=== PATIENT | male | born 1945 | race Hispanic/Latino ===

== ENCOUNTER 2017-01-01 08:10 | Inpatient (IN) | payer MEDICARE, BC ==
[2016-07-28 02:13] VITALS: PULSE 117
[2016-12-05 13:52] VITALS: BMI 27.3
[2017-01-01 08:43] LABS: ADD MANUAL DIFF? NO
[2017-01-01 08:45] LABS: BASO # 0.05 K/mm3 (0.0-2.0); BASO % 0.6 % (0.0-3.0); EOS # 0.1 (0.0-0.7); EOS % 1.5 % (1.5-5.0); GRAN # 5.97 (1.4-6.5); GRAN % 77.1 % (50.0-68.0); HEMATOCRIT 42.7 % (42.0-52.0); LYMPH % 13.4 % (22.0-35.0); MEAN CORPUSCULAR HGB CONC 34.4 g/dl (31.0-37.0); MEAN PLATELET VOLUME 10.2 fl (7.0-11.0); MONO # 0.6 (0.1-0.6); MONO % 7.4 % (1.0-6.0); PLATELET COUNT 238 10^3/uL (120.0-450.0); RED CELL DISTRIBUTION WIDTH 13.6 % (11.5-14.5); WHITE BLOOD COUNT 7.8 10^3/ul (4.5-11.0)
[2017-01-01 09:07] LABS: ALB/GLOB RATIO 1.2 (1.1-1.8); ALKALINE PHOSPHATASE 55 U/L (38-133); ALT/SGPT 35 U/L (7-56); AST/SGOT 46 U/L (15-59); BILIRUBIN,TOTAL 1.3 mg/dL (0.2-1.3); BLOOD UREA NITROGEN 14 mg/dL (7-21); CALCIUM 9.5 mg/dL (8.4-10.5); CARBON DIOXIDE 21 mmol/L (21-33); CHLORIDE 99 mmol/L (95-110); GFR AFRICAN-AMERICAN > 60; GLUCOSE,RANDOM 70 mg/dL (70-110); POTASSIUM 4.6 mmol/L (3.6-5.0); SODIUM 135 mmol/L (132-148); TOTAL PROTEIN 8.4 g/dL (5.8-8.3)
[2017-01-01] MEDS ORDERED: Rocuronium 10 mg/ml (5 ml) ONE ×2 (10:24→12:22)
[2017-01-01] MEDS ORDERED: Propofol 10 mg/ml Inj (20 ML) ONE (10:24)
[2017-01-01] MEDS ORDERED: Succinylcholine 200 mg/10 ml Inj IV ONE (10:24)
[2017-01-01] MEDS ORDERED: metroNIDAZOLE IV 500 mg/100 ml 100 ML ONE (10:43)
[2017-01-01] MEDS ORDERED: ePHEDrine 50 mg/ml Inj ONE (10:56)
[2017-01-01] MEDS ORDERED: Neostigmine Methylsulfate 3mg/3ml Syringe IV ONE (12:22)
[2017-01-01] MEDS ORDERED: Bupivacaine 0.25% Inj(30mL) ONE (13:49)
[2017-01-01] MEDS ORDERED: HYDROmorphone 0.5 mg/0.5 ml ISec IVP PRN (15:09)
[2017-01-01] MEDS ORDERED: Lactated Ringer's 1,000 ML IV SCH (15:15)
[2017-01-01] MEDS ORDERED: HYDROmorphone 0.5 mg/0.5 ml ISec ONE (15:27)
[2017-01-01] MEDS ORDERED: cefOXitin Sodium 1 GM in Sodium Chloride 0.9% 100 ML IV SCH ×2 (15:45→18:40)
[2017-01-01] MEDS ORDERED: metroNIDAZOLE IV 250mg/50 ml 50 ML IVPB SCH ×3 (15:45→18:50)
[2017-01-01] MEDS: White Petrolatum Ophth Oint (Puralube) OS SCH ×2 (15:49→17:46)
--- NOTE | 2017-01-01 15:51 | PCM.SURG1 ---
Surgeon's Initial Post Op Note - Surgeon's Notes Surgeon: Any Collarette Separator: Baltazar Martines Pre-Operative Diagnosis: Diverticulosis, colostomy status, incision hernia Operative Findings: incisional hernia, diverticulosis, stoma Post-Operative Diagnosis: Diverticulosis, colostomy status, incision hernia Operation Performed: colostomy reversal, incisional hernia repair Specimen/Specimens Removed: colon, fascia Estimated Blood Loss: EBL {In ML}: 40 Drains Used: Ld (2) Date of Surgery/Procedure: 01/01/17 Time of Surgery/Procedure: 10:45
[2017-01-01] MEDS: Lactated Ringer's 1,000 ML IV SCH (17:39)
[2017-01-01] MEDS ORDERED: Non Formulary Medication (Valsartan [Diovan] 160 MG) PO SCH (18:00)
[2017-01-01] MEDS: HYDROmorphone 1 mg/ml ISec IVP PRN ×2 (18:11→21:18)
[2017-01-01] MEDS: cefOXitin Sodium 1 GM in Sodium Chloride 0.9% 100 ML IV SCH (18:45)
[2017-01-01] MEDS: metroNIDAZOLE IV 500 mg/100 ml 100 ML IV SCH (19:26)
[2017-01-01] MEDS ORDERED: Erythromycin 0.5% Ophth Oint 1 APPLIC/3.5 G OU SCH (22:00)
[2017-01-02] MEDS: HYDROmorphone 1 mg/ml ISec IVP PRN ×7 (00:24→23:12)
[2017-01-02] MEDS: metroNIDAZOLE IV 500 mg/100 ml 100 ML IV SCH (02:38)
[2017-01-02] MEDS: cefOXitin Sodium 1 GM in Sodium Chloride 0.9% 100 ML IV SCH (03:32)
[2017-01-02 07:40] LABS: ADD MANUAL DIFF? NO
[2017-01-02 07:46] LABS: BASO # 0.01 K/mm3 (0.0-2.0); BASO % 0.1 % (0.0-3.0); EOS % 0.1 % (1.5-5.0); GRAN # 7.46 (1.4-6.5); GRAN % 76.1 % (50.0-68.0); HEMATOCRIT 37.8 % (42.0-52.0); LYMPH # 0.8 (1.2-3.4); LYMPH % 7.6 % (22.0-35.0); MEAN CORPUSCULAR HEMOGLOBIN 32.3 pg (25.0-35.0); MEAN CORPUSCULAR HGB CONC 34.4 g/dl (31.0-37.0); MEAN PLATELET VOLUME 10.6 fl (7.0-11.0); MONO # 1.6 (0.1-0.6); MONO % 16.1 % (1.0-6.0); PLATELET COUNT 231 10^3/uL (120.0-450.0); WHITE BLOOD COUNT 9.8 10^3/ul (4.5-11.0)
[2017-01-02 07:57] LABS: BLOOD UREA NITROGEN 14 mg/dL (7-21); CALCIUM 8.5 mg/dL (8.4-10.5); CARBON DIOXIDE 26 mmol/L (21-33); CHLORIDE 100 mmol/L (95-110); GFR AFRICAN-AMERICAN > 60; GLUCOSE,RANDOM 118 mg/dL (70-110); POTASSIUM 4.3 mmol/L (3.6-5.0); SODIUM 136 mmol/L (132-148)
--- NOTE | 2017-01-02 07:59 | RAD ---
HISTORY: s/p NG tube COMPARISON: 08/03/2016 FINDINGS: The nasogastric tube terminates in the stomach. LUNGS: There is mild pulmonary venous congestion. There is bibasilar subsegmental atelectasis. There is no focal consolidation PLEURA: No significant pleural effusion identified, no pneumothorax apparent. CARDIOVASCULAR: The heart is normal in size. Status post CABG with OSSEOUS STRUCTURES: No significant abnormalities. VISUALIZED UPPER ABDOMEN: Normal. OTHER FINDINGS: None. IMPRESSION: The nasogastric tube terminates in the stomach. Mild pulmonary venous congestion. Bibasilar atelectasis.
[2017-01-02] MEDS: Lactated Ringer's 1,000 ML IV SCH ×3 (08:29→13:03)
[2017-01-02] MEDS: Metoprolol Succinate 100 mg XL Tab PO SCH (09:58)
[2017-01-02] MEDS: PITAVASTATIN CALCIUM 2 MG PO SCH (09:59)
[2017-01-02] MEDS: Tobramycin/Dexamethasone (Tobradex) Opth Sol (2.5 ml) OS SCH ×5 (10:14→23:14)
[2017-01-02] MEDS: White Petrolatum Ophth Oint (Puralube) OS SCH (11:53)
--- NOTE | 2017-01-02 13:02 | CP.PCM.PN ---
<Thomas Ledesma - Last Filed: 01/02/17 12:57> Subjective - Date & Time of Evaluation Date of Evaluation: 01/02/17 Time of Evaluation: 07:00 - Subjective Subjective: SURGERY NOTE FOR DR. AGARWAL 71M seen and examined at bedside. HILDA. Patient admits to incision pain, denies nausea, vomiting, fevers, chills. States he is unsure if he is passing gas. Objective - Vital Signs/Intake and Output Vital Signs (last 24 hours): Temp Pulse Resp BP Pulse Ox 98.3 F 56 L 19 139/78 97 01/02/17 06:00 01/02/17 09:58 01/02/17 06:00 01/02/17 06:00 01/02/17 06:00 Intake and Output: 01/02/17 01/02/17 06:59 18:59 Intake Total 2400 Output Total 2300 Balance 100 - Medications Medications: Current Medications Acetaminophen (Tylenol 325mg Tab) 650 mg PO Q6H PRN PRN Reason: Pain, moderate (4-7) Amiodarone HCl (Cordarone) 100 mg PO DAILY [facility] Last Admin: 01/02/17 09:57 Dose: Not Given Heparin Sodium (Porcine) (Heparin) 5,000 units SC 0800 [facility] Last Admin: 01/02/17 08:21 Dose: 5,000 units Hydromorphone HCl (Dilaudid) 1 mg IVP Q3 PRN PRN Reason: Pain, moderate (4-7) Last Admin: 01/02/17 10:51 Dose: 1 mg Lactated Ringer's (Lactated Ringer's) 1,000 mls @ 75 mls/hr IV .[id number] [facility] Losartan Potassium (Cozaar) 100 mg PO QPM [facility] Last Admin: 01/01/17 17:34 Dose: Not Given Metoprolol Succinate (Toprol Xl) 100 mg PO QAM [facility] Last Admin: 01/02/17 09:58 Dose: Not Given Non-Formulary Medication (Pitavastatin Calcium [Livalo]) 2 mg PO QAM [facility] Last Admin: 01/02/17 09:59 Dose: Not Given Ondansetron HCl (Zofran Inj) 4 mg IVP Q4H PRN PRN Reason: Nausea/Vomiting Pantoprazole Sodium (Protonix Inj) 40 mg IVP DAILY [facility] Last Admin: 01/02/17 09:58 Dose: 40 mg Tobramycin/Dexamethasone (Tobradex Opht Susp) 0 ml OS Q4 [facility] Last Admin: 01/02/17 12:40 Dose: 1 drop - Labs Labs: 01/02/17 07:00 01/02/17 07:00 - Constitutional Appears: Non-toxic, No Acute Distress - Head Exam Head Exam: ATRAUMATIC - Eye Exam Eye Exam: EOMI, PERRL - Respiratory Exam Respiratory Exam: Clear to Ausculation Bilateral, NORMAL BREATHING PATTERN - Cardiovascular Exam Cardiovascular Exam: REGULAR RHYTHM, +S1, +S2 - GI/Abdominal Exam GI & Abdominal Exam: Soft, Tenderness. absent: Distended, Firm, Guarding, Rigid , Rebound Additional comments: dressing is CDI, drains in place, output is serosanguious, NG tube output minimal overnight. - Neurological Exam Neurological Exam: Alert, Awake - Skin Skin Exam: Dry, Normal Color, Urticaria, Warm Assessment and Plan - Assessment and Plan (Free Text) Assessment: 71M s/p colostomy reversal/Incisional hernia repair POD#1 Plan: - await bowel function - monitor urine output - advance to Liquid diet - DC NGT tonight, continue IVF - OnQ ball in place Discussed with Dr. Any Ledesma, PGY1 <Nasir Agarwal - Last Filed: 03/20/17 08:03> Objective - Vital Signs/Intake and Output Vital Signs (last 24 hours): Temp Pulse Resp BP Pulse Ox 98.4 F 64 20 146/82 96 01/05/17 08:43 01/05/17 09:28 01/05/17 08:43 01/05/17 09:28 01/05/17 08:43 - Labs Labs: 01/04/17 06:30 01/04/17 06:30 Assessment and Plan - Assessment and Plan (Free Text) Plan: Patient was seen and examined by me. I agree with assessment and plan as per resident's note.
--- NOTE | 2017-01-02 21:29 | CONS ---
The patient is a 71-year-old white male who yesterday, after surgery, had a corneal abrasion in his l eft eye. I saw him on consultation this morning. I had, by phone, put him on erythromycin ophthalmi c ointment, but this morning the eye looks better, so I am going to switch him to TobraDex 1 drop in the left eye 4 times a day. The rest of his eye exam is normal. I will see him in followup in of yobany. Alejandro Alexandre MD cc: [phone] TT: 01/02/2017 21:28:57 corazon
[2017-01-03] MEDS ORDERED: HYDROmorphone 0.5 mg/0.5 ml ISec IVP PRN (01:46)
[2017-01-03] MEDS: HYDROmorphone 1 mg/ml ISec IVP PRN ×4 (02:04→21:01)
[2017-01-03] MEDS: Lactated Ringer's 1,000 ML IV SCH (02:25)
--- NOTE | 2017-01-03 03:22 | CON ---
DATE: 01/02/2017 HISTORY OF PRESENT ILLNESS: This is a 71-year-old man with a history of hypertension, atrial fibrill ation, coronary artery disease and low ejection fraction, who presented to the Emergency Room in 07/09 016 acutely ill with free air under the diaphragm, perforated viscus from a ruptured diverticulum. Thuy rodriguez went to the OR for colonoscopy, was treated in intensive care, was critically ill for some period o f time, sedated and intubated, but amazingly improved clinically. He continued to progress through t he course of the hospital stay, was discharged to home with a colostomy and now some 5 months later r eturns to [facility] for elective reanastomosis of colostomy and repair of a ventral hernia. The patient was seen this Sunday morning in room 369, bed 1. During my visit, I was joined by Dr. Juan Carlos coleman, the attending surgeon and his financial institution president. The patient was awake, alert and clear 1 day postoperatively, moving all extremities. He reports feeling bowel sounds and borborygmi but no flatus or stool passed as of yet. PHYSICAL EXAMINATION: HEAD AND NECK: Unremarkable. Conjunctivae are pink. Mucous membranes are moist. NECK: Supple, without masses. Thyroid not palpable. LUNGS: Clear. Good air exchange, both right and left. HEART: Not tachycardic. ABDOMEN: Quiet with dressings in place. EXTREMITIES: Showed ESTRELLITA stockings in place. No calf tenderness. No swelling and negative Homans' s ign. IMPRESSION: 1. Postoperative day #1 of colostomy reversal and hernia repair. 2. Hypertension. 3. History of atrial fibrillation. 4. Low ejection fraction. 5. History of coronary artery disease. PLAN: Postoperatively, doing well. We will follow vital signs, blood pressure labs and prior medica tions. Yonatan Rehman MD cc: [phone] TT: 01/03/2017 03:21:38 Confirmation # [id number] Dictation # [id number]
[2017-01-03] MEDS: Tobramycin/Dexamethasone (Tobradex) Opth Sol (2.5 ml) OS SCH ×5 (04:47→21:01)
[2017-01-03] MEDS: Metoprolol Succinate 100 mg XL Tab PO SCH (09:38)
[2017-01-03] MEDS: PITAVASTATIN CALCIUM 2 MG PO SCH (09:40)
--- NOTE | 2017-01-03 11:47 | CON ---
DATE: 01/03/2017 REQUESTING PHYSICIAN: Dr. Agarwal. REASON FOR CONSULTATION: Cardiology followup. HISTORY OF PRESENT ILLNESS: This is a 71-year-old man known to us from prior admission who was admit [facility] for reversal of colostomy and ventral hernia repair. He was admitted last July with severe ab dominal pain and found to have a perforated viscus secondary to ruptured diverticulum. He underwent emergency partial colectomy at that time. He has known coronary artery disease, chronic atrial fibri llation and a history of hypertension and LV dysfunction. He had previously been followed by Dr. Lacy august; however, is planning on switching to a local customs officer for ongoing followup. He is seen sit ting in a chair on 3R. He is comfortable at the present time except for some incisional pain. PAST MEDICAL HISTORY: Notable for the problems mentioned above. He has known coronary disease and u nderwent prior bypass surgery and does have chronic atrial fibrillation and hypertension. He had pre viously been on Xarelto, but that was discontinued some time ago. MEDICATIONS: He currently remains on amiodarone 100 mg daily, Cozaar 100 mg daily, Dilaudid, subcuta neous heparin, Livalo 2 mg daily, Protonix, Toprol-XL 100 mg daily. ALLERGIES: None. SOCIAL HISTORY: He is a former smoker. He denies alcohol use. FAMILY HISTORY: Both parents are from age-related illness. REVIEW OF SYSTEMS: Ten point review of systems is otherwise unremarkable. PHYSICAL EXAMINATION: GENERAL: He is a middle-aged man who appears comfortable at the present time. VITAL SIGNS: His blood pressure is 126/56 with a pulse of 80, irregularly irregular, respirations ar e 14. His current temperature is 99.9. HEENT: Normocephalic, atraumatic. Pupils equally reactive to light and accommodation. NECK: Supple. No JVD noted. CHEST: Good bilateral breath sounds heard. HEART: PMI displaced laterally with a systolic murmur in the left sternal border. Rhythm is irregul james irregular. ABDOMEN: Soft, faint bowel sounds heard. The dressing is clean and dry. EXTREMITIES: No clubbing, cyanosis or edema. SKIN: Warm and dry. PSYCHIATRIC: Normal mood and affect. NEUROLOGIC: Alert and oriented x 3. No gross motor or sensory deficits appreciable. DIAGNOSTIC DATA: His white count is 9.8, hemoglobin and hematocrit 13.0 and 37.8 with a platelet cou nt of 231,000. Potassium 4.3, BUN and creatinine are 14 and 1.0, glucose 118. Electrocardiogram is pending. Chest x-ray preoperatively revealed bibasilar atelectasis, poststernotomy changes. IMPRESSION: 1. Status post colostomy reversal and hernia repair. Appears clinically stable at the present time. 2. Known coronary artery disease, status post remote bypass surgery, also appears stable. 3. Atrial fibrillation appears persistent at the present time. 4. Left ventricular systolic dysfunction and appears clinically compensated at present time. RECOMMENDATIONS: 1. His current medications can be continued for now. A question exists as to whether chronic amioda cary therapy is necessary or appropriate. 2. He has been reluctant to resume anticoagulant therapy as he feels the risk of bleeding is excessi ve. The risks and benefits of bleeding versus stroke will need to be discussed in detail with him fu rther. 3. Avoidance of excessive volume infusion is advised. 4. All the records will be obtained. 5. Ongoing followup will be provided. Thank you for this consultation. I will be happy to follow along as needed. Davion Gallo MD cc: [id number] TT: 01/03/2017 11:47:10 Confirmation # [id number] Dictation # [id number]
--- NOTE | 2017-01-03 12:39 | CP.PCM.PN ---
<Thomas Ledesma - Last Filed: 01/03/17 12:41> Subjective - Date & Time of Evaluation Date of Evaluation: 01/03/17 Time of Evaluation: 09:30 - Subjective Subjective: SURGERY PROGRESS NOTE FOR DR. AGARWAL 71M seen and examined at bedside. Patient is comfortable and out of bed. States he has been voiding, pain is well controlled with medication, denies nausea, vomiting, admits to hearing bowel sounds, but unsure if he is passing gas. Denies bowel movement. Objective - Vital Signs/Intake and Output Vital Signs (last 24 hours): Temp Pulse Resp BP Pulse Ox 99.9 F H 79 17 126/56 L 99 01/03/17 06:00 01/03/17 09:39 01/03/17 06:00 01/03/17 09:39 01/03/17 06:00 Intake and Output: 01/03/17 01/03/17 06:59 18:59 Intake Total 825 Output Total 500 Balance 325 - Medications Medications: Current Medications Acetaminophen (Tylenol 325mg Tab) 650 mg PO Q6H PRN PRN Reason: Pain, moderate (4-7) Amiodarone HCl (Cordarone) 100 mg PO DAILY [facility] Last Admin: 01/03/17 09:39 Dose: 100 mg Heparin Sodium (Porcine) (Heparin) 5,000 units SC 0800 [facility] Last Admin: 01/03/17 08:02 Dose: 5,000 units Hydromorphone HCl (Dilaudid) 1 mg IVP Q3 PRN PRN Reason: Pain, moderate (4-7) Last Admin: 01/03/17 11:15 Dose: 1 mg Hydromorphone HCl (Dilaudid) 0.5 mg IVP Q2 PRN PRN Reason: Pain, moderate (4-7) Lactated Ringer's (Lactated Ringer's) 1,000 mls @ 75 mls/hr IV .[id number] [facility] Last Admin: 01/03/17 02:25 Dose: 75 mls/hr Losartan Potassium (Cozaar) 100 mg PO QPM [facility] Last Admin: 01/02/17 17:03 Dose: Not Given Metoprolol Succinate (Toprol Xl) 100 mg PO QAM [facility] Last Admin: 01/03/17 09:38 Dose: 100 mg Non-Formulary Medication (Pitavastatin Calcium [Livalo]) 2 mg PO QAM [facility] Last Admin: 01/03/17 09:40 Dose: Not Given Ondansetron HCl (Zofran Inj) 4 mg IVP Q4H PRN PRN Reason: Nausea/Vomiting Pantoprazole Sodium (Protonix Inj) 40 mg IVP DAILY [facility] Last Admin: 01/03/17 09:39 Dose: 40 mg Tobramycin/Dexamethasone (Tobradex Opht Susp) 0 ml OS Q4 [facility] Last Admin: 01/03/17 11:16 Dose: 1 drop - Labs Labs: 01/02/17 07:00 01/02/17 07:00 - Constitutional Appears: Non-toxic, No Acute Distress - Head Exam Head Exam: ATRAUMATIC - Eye Exam Eye Exam: EOMI, PERRL - ENT Exam ENT Exam: Mucous Membranes Moist - Respiratory Exam Respiratory Exam: Clear to Ausculation Bilateral, NORMAL BREATHING PATTERN - Cardiovascular Exam Cardiovascular Exam: REGULAR RHYTHM, +S1, +S2 - GI/Abdominal Exam GI & Abdominal Exam: Soft, Tenderness (appropriate tenderness). absent: Distended, Firm, Guarding, Rigid, Rebound Additional comments: both ancelmo drain in place, medial drain on wall suction, both serosanguinous fluid. Dressings clean dry intact Assessment and Plan - Assessment and Plan (Free Text) Assessment: 71M s/p colostomy reversal/Incisional hernia repair POD#2 Plan: - await bowel function - Monitor diet - Continue IVF - OnQ ball in place Discussed with Dr. Any Ledesma, PGY1 <Nasir Agarwal - Last Filed: 03/20/17 08:04> Objective - Vital Signs/Intake and Output Vital Signs (last 24 hours): Temp Pulse Resp BP Pulse Ox 98.4 F 64 20 146/82 96 01/05/17 08:43 01/05/17 09:28 01/05/17 08:43 01/05/17 09:28 01/05/17 08:43 - Labs Labs: 01/04/17 06:30 01/04/17 06:30 Assessment and Plan - Assessment and Plan (Free Text) Plan: Patient was seen and examined by me. I agree with assessment and plan as per resident's note.
[2017-01-03 17:20] VITALS: RESP 20
--- NOTE | 2017-01-03 17:25 | CARD ---
APPROVED REPORT EKG Measurement Heart [id number] <Conclusion> Atrial fibrillation with rapid ventricular response Inferior infarct, age undetermined Anterior infarct, age undetermined Abnormal ECG
[2017-01-04] MEDS: Tobramycin/Dexamethasone (Tobradex) Opth Sol (2.5 ml) OS SCH ×6 (01:17→21:28)
[2017-01-04] MEDS: HYDROmorphone 1 mg/ml ISec IVP PRN ×2 (02:04→06:33)
[2017-01-04 07:09] LABS: HEMATOCRIT 33.2 % (42.0-52.0); MEAN CELL VOLUME 94.1 fL (80.0-105.0); MEAN CORPUSCULAR HEMOGLOBIN 31.7 pg (25.0-35.0); MEAN CORPUSCULAR HGB CONC 33.7 g/dl (31.0-37.0); MEAN PLATELET VOLUME 10.3 fl (7.0-11.0); RED CELL DISTRIBUTION WIDTH 13.7 % (11.5-14.5); WHITE BLOOD COUNT 10.3 10^3/ul (4.5-11.0)
[2017-01-04 07:27] LABS: ALKALINE PHOSPHATASE 38 U/L (38-133); ALT/SGPT 24 U/L (7-56); AST/SGOT 38 U/L (15-59); BILIRUBIN,TOTAL 1.2 mg/dL (0.2-1.3); BLOOD UREA NITROGEN 10 mg/dL (7-21); CARBON DIOXIDE 26 mmol/L (21-33); CHLORIDE 98 mmol/L (98-107); GFR AFRICAN-AMERICAN > 60; GLUCOSE,RANDOM 91 mg/dL (70-110); POTASSIUM 3.9 mmol/L (3.6-5.0); SODIUM 132 mmol/L (132-148)
--- NOTE | 2017-01-04 08:17 | CP.PCM.PN ---
Subjective - Date & Time of Evaluation Date of Evaluation: 01/04/17 Time of Evaluation: 08:00 - Subjective Subjective: Stable on 3R. No CP or SOB. Still some abd pain. Taking PO. + flatus V/S Noted. PE: Lungs: clear Cor.: irreg. S1S2 Abd.: soft Ext.: no edema Neuro.: alert I/O= 540/400 Labs 01/03 noted: H/H Objective - Vital Signs/Intake and Output Vital Signs (last 24 hours): Temp Pulse Resp BP Pulse Ox 98.3 F 52 L 20 137/69 96 01/03/17 16:00 01/03/17 16:00 01/03/17 16:00 01/03/17 16:00 01/03/17 16:00 Intake and Output: 01/04/17 01/04/17 06:59 18:59 Intake Total 540 Output Total 400 Balance 140 - Medications Medications: Current Medications Acetaminophen (Tylenol 325mg Tab) 650 mg PO Q6H PRN PRN Reason: Pain, moderate (4-7) Amiodarone HCl (Cordarone) 100 mg PO DAILY [facility] Last Admin: 01/03/17 09:39 Dose: 100 mg Heparin Sodium (Porcine) (Heparin) 5,000 units SC 0800 [facility] Last Admin: 01/03/17 08:02 Dose: 5,000 units Hydromorphone HCl (Dilaudid) 1 mg IVP Q3 PRN PRN Reason: Pain, moderate (4-7) Last Admin: 01/04/17 06:33 Dose: 1 mg Hydromorphone HCl (Dilaudid) 0.5 mg IVP Q2 PRN PRN Reason: Pain, moderate (4-7) Last Admin: 01/03/17 15:59 Dose: 0.5 mg Losartan Potassium (Cozaar) 100 mg PO QPM [facility] Last Admin: 01/03/17 17:28 Dose: 100 mg Metoprolol Succinate (Toprol Xl) 100 mg PO QAM [facility] Last Admin: 01/03/17 09:38 Dose: 100 mg Non-Formulary Medication (Pitavastatin Calcium [Livalo]) 2 mg PO QAM [facility] Last Admin: 01/03/17 09:40 Dose: Not Given Ondansetron HCl (Zofran Inj) 4 mg IVP Q4H PRN PRN Reason: Nausea/Vomiting Pantoprazole Sodium (Protonix Inj) 40 mg IVP DAILY [facility] Last Admin: 01/03/17 09:39 Dose: 40 mg Tobramycin/Dexamethasone (Tobradex Opht Susp) 0 ml OS Q4 [facility] Last Admin: 01/04/17 05:25 Dose: Not Given - Labs Labs: 01/04/17 06:30 01/04/17 06:30 Assessment and Plan - Assessment and Plan (Free Text) Plan: Assessment; S/P reversal of colostomy and vent. hernia repair S/P partial colectomy CAD/CABG/LVD Chronic AF HBP Former Smoker Plan: As per surgery: adv. diet OOB Continue metoprolol and amiod. In future may d/c amiod. Monitor: I/O, labs, katherine., etc.
--- NOTE | 2017-01-04 09:05 | CP.PCM.PN ---
<Thomas Ledesma - Last Filed: 01/04/17 09:14> Subjective - Date & Time of Evaluation Date of Evaluation: 01/04/17 Time of Evaluation: 07:30 - Subjective Subjective: SURGERY NOTE FOR DR. HARO 71M seen and examined at bedside. Patient states his pain is controlled with medications, denies nausea, vomiting, fevers. Admits to passing flatus but no BM yet. Patient has been urinating after bethea pulled. Tolerating liquid diet. Objective - Vital Signs/Intake and Output Vital Signs (last 24 hours): Temp Pulse Resp BP Pulse Ox 98.3 F 52 L 20 137/69 96 01/03/17 16:00 01/03/17 16:00 01/03/17 16:00 01/03/17 16:00 01/03/17 16:00 Intake and Output: 01/04/17 01/04/17 06:59 18:59 Intake Total 540 Output Total 400 Balance 140 - Medications Medications: Current Medications Acetaminophen (Tylenol 325mg Tab) 650 mg PO Q6H PRN PRN Reason: Pain, moderate (4-7) Amiodarone HCl (Cordarone) 100 mg PO DAILY [facility] Last Admin: 01/03/17 09:39 Dose: 100 mg Heparin Sodium (Porcine) (Heparin) 5,000 units SC 0800 [facility] Last Admin: 01/03/17 08:02 Dose: 5,000 units Hydromorphone HCl (Dilaudid) 1 mg IVP Q3 PRN PRN Reason: Pain, moderate (4-7) Last Admin: 01/04/17 06:33 Dose: 1 mg Hydromorphone HCl (Dilaudid) 0.5 mg IVP Q2 PRN PRN Reason: Pain, moderate (4-7) Last Admin: 01/03/17 15:59 Dose: 0.5 mg Losartan Potassium (Cozaar) 100 mg PO QPM [facility] Last Admin: 01/03/17 17:28 Dose: 100 mg Metoprolol Succinate (Toprol Xl) 100 mg PO QAM [facility] Last Admin: 01/03/17 09:38 Dose: 100 mg Non-Formulary Medication (Pitavastatin Calcium [Livalo]) 2 mg PO QAM [facility] Last Admin: 01/03/17 09:40 Dose: Not Given Ondansetron HCl (Zofran Inj) 4 mg IVP Q4H PRN PRN Reason: Nausea/Vomiting Pantoprazole Sodium (Protonix Inj) 40 mg IVP DAILY [facility] Last Admin: 01/03/17 09:39 Dose: 40 mg Tobramycin/Dexamethasone (Tobradex Opht Susp) 0 ml OS Q4 [facility] Last Admin: 01/04/17 05:25 Dose: Not Given - Labs Labs: 01/04/17 06:30 01/04/17 06:30 - Constitutional Appears: Non-toxic, No Acute Distress - Head Exam Head Exam: ATRAUMATIC - Respiratory Exam Respiratory Exam: Clear to Ausculation Bilateral, NORMAL BREATHING PATTERN - Cardiovascular Exam Cardiovascular Exam: REGULAR RHYTHM, +S1, +S2 - GI/Abdominal Exam GI & Abdominal Exam: Soft, Tenderness (appropriate tenderness around incisions) . absent: Distended, Firm, Guarding, Rigid Additional comments: drains in place with serosang output. Drain dressings changed. Incisions/ dressing are clean dry intact - Neurological Exam Neurological Exam: Alert, Awake - Skin Skin Exam: Dry, Intact, Normal Color, Warm Assessment and Plan - Assessment and Plan (Free Text) Assessment: 71M s/p colostomy reversal/Incisional hernia repair POD#3 Plan: - ADAT - monitor drains, dressings - OnQ ball finished - pull OnQ - Monitor for bowel movements - Encourage ambulation/ IS/ Stockings Further recs discuss with Dr. Any Ledesma, PGY1 <Nasir Haro - Last Filed: 03/20/17 08:04> Objective - Vital Signs/Intake and Output Vital Signs (last 24 hours): Temp Pulse Resp BP Pulse Ox 98.4 F 64 20 146/82 96 01/05/17 08:43 01/05/17 09:28 01/05/17 08:43 01/05/17 09:28 01/05/17 08:43 - Labs Labs: 01/04/17 06:30 01/04/17 06:30 Assessment and Plan - Assessment and Plan (Free Text) Plan: Patient was seen and examined by me. I agree with assessment and plan as per resident's note.
[2017-01-04] MEDS: Metoprolol Succinate 100 mg XL Tab PO SCH (11:41)
[2017-01-04] MEDS: PITAVASTATIN CALCIUM 2 MG PO SCH (11:53)
[2017-01-05] MEDS: Tobramycin/Dexamethasone (Tobradex) Opth Sol (2.5 ml) OS SCH ×3 (01:25→08:16)
[2017-01-05] MEDS: Oxycodone/Acetaminophen 5/325 mg Tab PO PRN ×2 (04:26→09:33)
--- NOTE | 2017-01-05 08:02 | CP.PCM.PN ---
Subjective - Date & Time of Evaluation Date of Evaluation: 01/05/17 Time of Evaluation: 08:00 - Subjective Subjective: Stable on 3R. No CP or SOB. Still some abd pain. Taking PO. + BM yesterday V/S Noted. PE: Lungs: clear Cor.: irreg. S1S2 Abd.: soft Ext.: no edema Neuro.: alert I/O= 1500/230 Labs 01/04 noted. Objective - Vital Signs/Intake and Output Vital Signs (last 24 hours): Temp Pulse Resp BP Pulse Ox 98.2 F 72 20 166/95 H 95 01/04/17 16:00 01/04/17 16:00 01/04/17 16:00 01/04/17 16:00 01/04/17 16:00 Intake and Output: 01/05/17 01/05/17 06:59 18:59 Intake Total 660 Output Total 230 Balance 430 - Medications Medications: Current Medications Acetaminophen (Tylenol 325mg Tab) 650 mg PO Q6H PRN PRN Reason: Pain, moderate (4-7) Amiodarone HCl (Cordarone) 100 mg PO DAILY [facility] Last Admin: 01/04/17 11:40 Dose: 100 mg Heparin Sodium (Porcine) (Heparin) 5,000 units SC 0800 [facility] Last Admin: 01/04/17 08:00 Dose: 5,000 units Losartan Potassium (Cozaar) 100 mg PO QPM [facility] Last Admin: 01/04/17 18:21 Dose: 100 mg [facility]oprol[facility] Succinate ([facility]l) [facility] [place] Admin: 01/04/17 11:41 Dose: 100 mg Non-Formulary Medication (Pitavastatin Calcium [Livalo]) 2 mg PO [facility] Last Admin: 01/04/17 11:53 Dose: Not Given Ondansetron HCl (Zofran Inj) 4 mg IVP Q4H PRN PRN Reason: Nausea/Vomiting Oxycodone/Acetaminophen (Percocet 5/325 Mg Tab) 1 tab PO Q6H PRN PRN Reason: Pain, moderate (4-7) Stop: 01/07/17 18:06 Last Admin: 01/05/17 04:26 Dose: 1 tab Pantoprazole Sodium (Protonix Inj) 40 mg IVP DAILY [facility] Last Admin: 01/04/17 11:41 Dose: 40 mg Tobramycin/Dexamethasone (Tobradex Opht Susp) 0 ml OS Q4 [facility] Last Admin: 01/05/17 04:26 Dose: 1 drop - Labs Labs: 01/04/17 06:30 01/04/17 06:30 Assessment and Plan - Assessment and Plan (Free Text) Plan: Assessment; S/P reversal of colostomy and vent. hernia repair S/P partial colectomy CAD/CABG/LVD Chronic AF HBP Former Smoker Plan: As per surgery. OOB Continue metoprolol and amiod. In future may d/c amiod. Home soon. Cardiology F/U in our office ~ 2 weeks.
[2017-01-05 08:44] VITALS: BP 146/82; PULSE 64; TEMP 98.4; O2SAT 96
--- NOTE | 2017-01-05 09:23 | PN ---
DATE: 01/04/2017 Initially, there was rumor the patient might go home today. His implanted analgesic device was remov ed. I am told that his Kayode-Delarosa drains are to be removed tomorrow, and discharge to home will b e more likely tomorrow. In the interim, he is doing well, his vital signs are stable. He is recovering nicely postoperativel y. The Ordonez catheter is out, and he is sleepy this evening, preparing for bed. Will follow in the morning, and medically ready for discharge home. Yonatan Rehman MD cc: [id number] TT: 01/05/2017 09:22:15 Confirmation # [id number] Dictation # [id number]
[2017-01-05] MEDS: Metoprolol Succinate 100 mg XL Tab PO SCH (09:28)
--- NOTE | 2017-01-05 12:48 | CP.PCM.DIS ---
Provider - Provider Date of Admission: 01/01/17 08:10 Attending physician: Nasir Haro MD Primary care physician: Elmer Rehman MD Time Spent in preparation of Discharge (in minutes): 35 Hospital Course - Lab Results Lab Results: Most Recent Lab Values WBC 10.3 10^3/ul (4.5-11.0) 01/04/17 06:30 RBC 3.53 10^6/uL (3.5-6.1) 01/04/17 06:30 Hgb 11.2 gm/dL (14.0-18.0) L 01/04/17 06:30 Hct 33.2 % (42.0-52.0) L 01/04/17 06:30 MCV 94.1 fL (80.0-105.0) 01/04/17 06:30 MCH 31.7 pg (25.0-35.0) 01/04/17 06:30 MCHC 33.7 g/dl (31.0-37.0) 01/04/17 06:30 RDW 13.7 % (11.5-14.5) 01/04/17 06:30 Plt Count 228 10^3/uL (120.0-450.0) 01/04/17 06:30 MPV 10.3 fl (7.0-11.0) 01/04/17 06:30 Gran % 76.1 % (50.0-68.0) H 01/02/17 07:00 Lymph % (Auto) 7.6 % (22.0-35.0) L 01/02/17 07:00 [place] % (Auto) 16.1 % (1.0-6.0) H 01/02/17 07:00 Eos % (Auto) 0.1 % (1.5-5.0) L 01/02/17 07:00 Baso % (Auto) 0.1 % (0.0-3.0) 01/02/17 07:00 Gran # 7.46 (1.4-6.5) H 01/02/17 07:00 Lymph # 0.8 (1.2-3.4) L 01/02/17 07:00 [place] # 1.6 (0.1-0.6) H 01/02/17 07:00 Eos # 0.0 (0.0-0.7) 01/02/17 07:00 Baso # 0.01 K/mm3 (0.0-2.0) 01/02/17 07:00 Sodium 132 mmol/L (132-148) 01/04/17 06:30 Potassium 3.9 mmol/L (3.6-5.0) 01/04/17 06:30 Chloride 98 mmol/L (98-107) 01/04/17 06:30 Carbon Dioxide 26 mmol/L (21-33) 01/04/17 06:30 Anion Gap 12 (10-20) 01/04/17 06:30 BUN 10 mg/dL (7-21) 01/04/17 06:30 Creatinine 0.8 mg/dL (0.5-1.4) 01/04/17 06:30 Est GFR ( Amer) > 60 01/04/17 06:30 Est GFR (Non-Af Amer) > 60 01/04/17 06:30 POC Glucose (mg/dL) 94 mg/dL (65-110) 01/03/17 21:04 Random Glucose 91 mg/dL (70-110) 01/04/17 06:30 Calcium 9.0 mg/dL (8.4-10.5) 01/04/17 06:30 Total Bilirubin 1.2 mg/dL (0.2-1.3) 01/04/17 06:30 AST 38 U/L (15-59) 01/04/17 06:30 ALT 24 U/L (7-56) 01/04/17 06:30 Alkaline Phosphatase 38 U/L (38-133) 01/04/17 06:30 Total Protein 7.0 g/dL (5.8-8.3) 01/04/17 06:30 Albumin 3.4 g/dL (3.0-4.8) 01/04/17 06:30 Globulin 3.5 gm/dL 01/04/17 06:30 Albumin/Globulin Ratio 1.0 (1.1-1.8) L 01/04/17 06:30 Blood Type O POSITIVE 01/01/17 08:30 Antibody Screen Negative 01/01/17 08:30 BBK History Checked Patient has bt 01/01/17 08:30 - Hospital Course Hospital Course: 71M admitted to the hospital after having a colostomy reversal and incisional hernia repair. Patient initially had a flores's procedure for diverticulitis 5 months ago. The surgery was uneventful without complications. Post op care was provided including, pain management, wound care, management of On-Q ball. Ld drain management. Patient's post op course was uneventful and patient did well. Patient experienced bowel movements and is now ready for Discharge. Discharge Exam - Head Exam Head Exam: ATRAUMATIC, NORMAL INSPECTION - Eye Exam Eye Exam: EOMI, PERRL - Respiratory Exam Respiratory Exam: Clear to PA & Lateral, NORMAL BREATHING PATTERN - Cardiovascular Exam Cardiovascular Exam: REGULAR RHYTHM, +S1, +S2 - GI/Abdominal Exam GI & Abdominal Exam: Soft. absent: Distended, Firm, Guarding, Rebound, Rigid, Tenderness Additional comments: Treva in place, incisions clean dry intact - Neurological Exam Neurological exam: Alert, Oriented x3 - Skin Skin Exam: Dry, Intact, Normal Color, Warm Discharge Plan - Discharge Medications Prescriptions: oxyCODONE/Acetaminophen [Percocet 5/325 mg Tab] 1 tab PO Q6H PRN #15 tab PRN Reason: Pain, Moderate (4-7) - Follow Up Plan Condition: GOOD Disposition: HOME/ ROUTINE Instructions: Open Colostomy Reversal (DC), Ventral Hernia Repair (DC) Additional Instructions: FOLLOW UP WITH PRIMARY DR. REHMAN NEXT WEEK. DRINK PLENTY OF FLUIDS. REPORT ANY CONSTIPATION OR ABDOMINAL PAIN TO MD OR GO TO ER. PAINT INCISIONS WITH BETADINE. CAN SHOWER TODAY. FOLLOW UP WITH DR. HARO IN 2 WEEKS. TREVA WILL BE TAKEN OUT IN THE OFFICE. Referrals: Nasir Haro MD [Staff Provider] - Elmer Rehman MD [Primary Care Provider] -
[2017-01-06] MEDS ORDERED: PITAVASTATIN CALCIUM 2 MG PO SCH (10:00)
--- NOTE | 2017-01-18 09:41 | OP ---
PROCEDURE DATE: 01/01/2017 PREOPERATIVE DIAGNOSES: Colostomy status, incisional hernia. POSTOPERATIVE DIAGNOSES: Colostomy status, incisional hernia, dense intraabdominal and pelvic adhesions. PROCEDURE: Colostomy Closure. Partial colectomy Splenic flexure mobilization. Lysis of dense pelvic adhesions Incisional hernia repair. SURGEON: Dr. Agarwal RECEIVING DISTRIBUTION STATION OPERATOR: DO Baltazar ANESTHESIOLOGIST: Dr. Spaulding ANESTHESIA: General endotracheal anesthesia. ESTIMATED BLOOD LOSS: Minimal. The patient is a 71-year-old male with a history of previous perforation secondary to diverticulitis which resulted in Alban's procedure with colostomy creation. The patient now comes in for closure of the colostomy. The patient also has a large incisional hernia in the midline. The patient will be having this hernia repaired as well. The patient was brought to the operating room and placed on the operating table in supine position. The patient was connected to EKG, blood pressure and pulse oximeter monitors. The patient then underwent general endotracheal anesthesia and was prepped and draped in usual sterile fashion. First, a standard timeout procedure took place and everybody in the room agreed as to the patient's identity, diagnosis and procedure to be performed. Using a #15 blade, an incision was made surrounding the colostomy and the incision was carried through subcutaneous fat and down to the fascia. Colostomy opening was carefully dissected out with adjacent fat and the colon itself was then carefully dissected out, down into the abdominal cavity in order to release it from the adhesions. Once this was done, the distal portion of the colon, which appeared to contain multiple large diverticula, was now excised by transecting the proximal descending colon with HERMILO stapler. That portion of the colon was sent as a specimen and the proximal portion of the colon was pushed back into the abdominal cavity. Now, we proceeded with midline incision, carefully dissecting the area of the hernia. Once access to the abdominal cavity was obtained, we then proceeded with lysis of dense intraabdominal as well as pelvic adhesions. Due to the previous perforation, there was a significant amount of adhesions throughout the pelvis. After tedious dissection of about an hour and 10 minutes, we were able to finally clear up all the small bowel from the pelvis, expose the distal sigmoid colon, previously transected, as well as mobilize the descending colon. Next, the splenic flexure was mobilized in order to gain adequate length for anastomosis. Now that the small bowel was out of the way and the colon was fully mobilized , I then proceeded with creation of the anastomosis. First, since patient was in a lithotomy position, an EEA stapler was placed into the rectum and the spike was brought out through the wall of the rectum. Now, the descending colon was fashioned with the anvil from the EEA stapler. The anvil was positioned in place and tied around its spike using a 2-0 nylon tie. Once this was all in place, the anvil and the EEA stapler were connected and the stapler was fired. The rings from the anastomosis were carefully inspected and appeared to be intact on both sides. Once this was done, I then proceeded with a careful testing of the anastomosis by insufflating air into the rectum and holding the proximal colon and evaluating for bubbling from the submerged anastomosis. The anastomosis appeared to hold air with no evidence of leak. At this point, the fluid in the pelvis was suctioned out and several 3-0 silk reinforcement stitches were placed around the anastomosis. The area of the splenic flexure mobilization was then carefully evaluated. There was no evidence of any bleeding from the spleen or the left upper quadrant. Now, we proceeded with evaluating the incisional hernia. It appeared there was a large hernia sac which was carefully dissected out. The fascia was cut laterally to the edges of the rectus muscle in order to gain adequate strength. Now, as the edges the fascia were strong, I then proceeded with closure of this wound using #1 PDS in a running fashion. Several interrupted wider stitches were used in order to reinforce the closure and prevent recurrence of the hernia. Once this wound was completely closed, the excess skin was excised and the subcutaneous tissue was now protected with a Ld placed into the wound and brought out through the skin. The skin was closed using 3-0 Vicryl for deep dermal stitches and surgical leatha for skin. There was also a Ld placed into the abdominal cavity and brought out through the right lower quadrant. Both drains were secured to the skin. Sterile dressings were applied to the wound. The colostomy wound was also closed using #1 PDS, 3-0 Vicryl and surgical leatha. The patient tolerated the procedure well and there were no complications. The patient was awakened and transferred to the recovery room for further observation. Nasir Agarwal MD cc: [id number] TT: 01/18/2017 09:40:50 en MTDNorma
== END 2017-01-05 13:49 | disposition home or self-care (01) | DRG 330 ==
LOC: SDAINP 08:10 → EDSTATUS 10:00 → 3RNO 17:17
PROVIDERS: ADMIT General Practice; ATTEND General Practice
PROC: 0DQN0ZZ Repair Sigmoid Colon, Open Approach (ICD-10-PCS; principal; 2017-01-01 10:00)
PROC: 0WQF0ZZ Repair Abdominal Wall, Open Approach (ICD-10-PCS; 2017-01-01 10:00)
DX: Z43.3 Encounter for attention to colostomy (principal); K43.0 Incisional hernia with obstruction, without gangrene; I48.2 Chronic atrial fibrillation; I10 Essential (primary) hypertension; K57.30 Diverticulosis of large intestine without perforation or abscess without bleeding; S05.02XA Injury of conjunctiva and corneal abrasion without foreign body, left eye, initial encounter; I25.10 Atherosclerotic heart disease of native coronary artery without angina pectoris; Z87.891 Personal history of nicotine dependence; Z95.1 Presence of aortocoronary bypass graft

== ENCOUNTER 2017-08-20 06:05 | Observation (INO) | payer MEDICARE, BC ==
[2016-07-28 02:13] VITALS: PULSE 117
[2017-08-20 06:42] VITALS: BMI 27.3
[2017-08-20] MEDS ORDERED: Lidocaine 1% Inj (20ml) ONE (07:29)
[2017-08-20] MEDS ORDERED: Bupivacaine 0.5% Inj(30mL) ONE (07:30)
[2017-08-20] MEDS ORDERED: Sodium Chloride 0.9% 1,000 ML IV SCH (07:45)
[2017-08-20] MEDS ORDERED: Morphine 2 mg/ml ISec IVP PRN (07:45)
[2017-08-20] MEDS ORDERED: Midazolam 2 MG/2 ML VIAL ONE (08:25)
[2017-08-20] MEDS ORDERED: Glycopyrrolate 0.2 mg/ml (2ml vial) ONE (08:26)
[2017-08-20] MEDS ORDERED: Neostigmine Methylsulfate 3mg/3ml Syringe IV ONE (08:27)
[2017-08-20] MEDS ORDERED: Etomidate 20 mg/10ml Inj IV ONE ×2 (08:27→09:19)
[2017-08-20] MEDS ORDERED: Rocuronium 10 mg/ml (5 ml) ONE ×2 (08:27→09:19)
[2017-08-20] MEDS ORDERED: Propofol 10 mg/ml Inj (20 ML) ONE (09:18)
[2017-08-20] MEDS ORDERED: ePHEDrine 50 mg/ml Inj ONE (09:38)
[2017-08-20] MEDS ORDERED: Sevoflurane - Inhalation Anesthetic Liq (250 ml) ONE (10:00)
--- NOTE | 2017-08-20 11:52 | PCM.SURG1 ---
Surgeon's Initial Post Op Note - Surgeon's Notes Surgeon: Dr. Agarwal Mold Dumper: Dr. Hansen PGY3 Type of Anesthesia: General Endo Anesthesia Administered By: Dr. Ruiz Pre-Operative Diagnosis: Incisional Hernia Operative Findings: same Post-Operative Diagnosis: same Operation Performed: Laparoscopic Lysis of Adhesions. Open Incisional Hernia repair with mesh. Enterorrhaphy x3. Bladder repair Specimen/Specimens Removed: hernia sac. skin Estimated Blood Loss: EBL {In ML}: 20 Blood Products Given: N/A Drains Used: Ld Post-Op Condition: Good Date of Surgery/Procedure: 08/20/17 Time of Surgery/Procedure: 11:53
[2017-08-20] MEDS ORDERED: HYDROmorphone 0.5 mg/0.5 ml ISec IVP PRN (11:53)
[2017-08-20] MEDS ORDERED: HYDROmorphone 1 mg/ml ISec ONE (12:16)
[2017-08-20] MEDS: HYDROmorphone 2 mg/ml ISec IVP PRN ×4 (12:20→21:56)
[2017-08-20] MEDS ORDERED: Sodium Chloride 0.9% 1,000 ML IV ONE (14:56)
[2017-08-20] MEDS: Metoprolol Succinate 100 mg XL Tab PO SCH (18:57)
[2017-08-21] MEDS: HYDROmorphone 2 mg/ml ISec IVP PRN ×2 (01:49→05:40)
--- NOTE | 2017-08-21 08:22 | CP.PCM.PN ---
<Ej Johnson - Last Filed: 08/21/17 17:25> Subjective - Date & Time of Evaluation Date of Evaluation: 08/21/17 Time of Evaluation: 08:06 - Subjective Subjective: PGY1 General Surgery Note for Dr. Agarwal Patient seen and examined at bedside this morning. No acute events overnight. Patient states his pain is much better this morning and improved throughout the night. He has been getting most of his pain medications through the IV and currently still has a bethea in place. Patient is tolerating a regular diet. Denies fevers, chills, nausea or vomiting. Objective - Vital Signs/Intake and Output Vital Signs (last 24 hours): Temp Pulse Resp BP Pulse Ox 98.0 F 71 17 162/76 H 97 08/21/17 07:30 08/21/17 07:30 08/21/17 07:30 08/21/17 07:30 08/21/17 07:30 Intake and Output: 08/21/17 08/21/17 06:59 18:59 Intake Total 720 Output Total 1440 Balance -720 - Medications Medications: Current Medications Amiodarone HCl (Cordarone) 100 mg PO QOTHERDAY [facility] Aspirin (Ecotrin) 81 mg PO QAM [facility] Enoxaparin Sodium (Lovenox) 40 mg SC DAILY [facility] PRN Reason: Protocol Hydromorphone HCl (Dilaudid) 1 mg IVP Q3H PRN PRN Reason: Pain, severe (8-10) Last Admin: 08/21/17 05:40 Dose: 1 mg Metoprolol Succinate (Toprol Xl) 100 mg PO QPM [facility] Last Admin: 08/20/17 18:57 Dose: Not Given Morphine Sulfate (Morphine) 2 mg IV Q15MIN PRN PRN Reason: Pain, moderate (4-7) Ondansetron HCl (Zofran Inj) 4 mg IVP ONCE PRN PRN Reason: Nausea/Vomiting Ondansetron HCl (Zofran Inj) 4 mg IVP Q6 PRN PRN Reason: Nausea/Vomiting Oxycodone/Acetaminophen (Percocet 5/325 Mg Tab) 2 tab PO Q4H PRN PRN Reason: Pain, moderate (4-7) Stop: 08/23/17 12:01 Valsartan (Diovan) 320 mg PO DAILY [facility] - Constitutional Appears: Non-toxic, No Acute Distress - Head Exam Head Exam: ATRAUMATIC, NORMOCEPHALIC - Eye Exam Eye Exam: EOMI, Normal appearance. absent: Scleral icterus - ENT Exam ENT Exam: Mucous Membranes Moist - Respiratory Exam Respiratory Exam: NORMAL BREATHING PATTERN. absent: Accessory Muscle Use, Respiratory Distress - Cardiovascular Exam Cardiovascular Exam: REGULAR RHYTHM - GI/Abdominal Exam GI & Abdominal Exam: Soft. absent: Distended, Firm, Guarding, Rigid, Tenderness - Extremities Exam Extremities Exam: absent: Calf Tenderness, Pedal Edema - Neurological Exam Neurological Exam: Alert, Awake, Oriented x3 - Psychiatric Exam Psychiatric exam: Normal Affect, Normal Mood - Skin Skin Exam: Dry, Warm Assessment and Plan - Assessment and Plan (Free Text) Assessment: 71 year old male s/p Laparoscopic Lysis of Adhesions. Open Incisional Hernia repair with mesh. Enterorrhaphy x3. Bladder repair. POD #1 Plan: - Patient failed voiding trial, only urinated 50cc (9 hours after bethea removal) - Urology consult, Dr. Alcazar for post op urinary retention - pain management, po meds - patient to be discharged home after resolution of urinary retention Case discussed with Dr. Any Johnson PGY1 <Nasir Agarwal - Last Filed: 08/22/17 19:37> Objective - Vital Signs/Intake and Output Vital Signs (last 24 hours): Temp Pulse Resp BP Pulse Ox 98.3 F 69 18 135/75 95 08/22/17 08:45 08/22/17 09:34 08/22/17 08:45 08/22/17 09:34 08/22/17 08:45 - Labs Labs: 08/22/17 06:40 08/22/17 06:40 Assessment and Plan - Assessment and Plan (Free Text) Plan: Patient was seen, evaluated and examined by me. I agree with the assessment and plan as per the resident's note.
[2017-08-21] MEDS: Oxycodone/Acetaminophen 5/325 mg Tab PO PRN ×3 (09:01→22:16)
[2017-08-21] MEDS ORDERED: Non Formulary Medication (Valsartan [Diovan] 320 MG) PO SCH (10:00)
[2017-08-21] MEDS: Enoxaparin 40 mg Syringe SC SCH ×2 (10:05→10:10)
--- NOTE | 2017-08-21 14:15 | OP ---
PROCEDURE DATE: 08/20/2017 PREOPERATIVE DIAGNOSIS: Incarcerated incisional hernia. POSTOPERATIVE DIAGNOSES: Incarcerated incisional hernia and dense intraabdominal pelvic adhesions. PROCEDURE PERFORMED: 1. Repair of the incarcerated incisional hernia with mesh. 2. Laparoscopic Lysis of dense, extensive intraabdominal and pelvic adhesions. 3. Enterorrhaphy repair x2. 4. Repair of the urinary bladder. SURGEON: Nasir Agarwal MD SOFTWARE APPLICATION TESTER: Dr. Hansen. TYPE OF ANESTHESIA: General endotracheal anesthesia. ANESTHESIA ADMINISTERED BY: Nena Ruiz MD ESTIMATED BLOOD LOSS: Minimal. SPECIMEN: Hernia sac. FINDINGS: The patient is a 71-year-old male with history of colon surgery for perforated diverticulitis and subsequent closure of the colostomy. The patient developed an incisional hernia and came in for evaluation and was set up for surgery. DESCRIPTION OF PROCEDURE: First, the patient was brought to the operating room and placed on the operating table in supine position. The patient was connected to the EKG, blood pressure, and pulse oximetry monitor. The patient then underwent general endotracheal anesthesia and was prepped and draped in usual sterile fashion. First, standard time-out procedure took place and everybody in the room agreed to the patient's identify, diagnosis, and procedure to be performed. Using lidocaine mixed with Marcaine, the area of the subcostal margin 12-mm trocar was infiltrated and a small incision was made in the skin in order to fit the trocar site. Under direct visualization for the Visiport, access to the abdominal cavity was obtained and pneumoperitoneum was inflated. It was noted that there was dense pelvic adhesions throughout the abdomen, both in the middle and both sides. I then proceeded to place a second 5-mm trocar in the anterior axillary line just below the costal margin and carefully proceeded with dissection of the adhesions. Those are carefully removed using both blunt and sharp dissection. Once those adhesions were taken down from the upper abdomen, I then proceeded carefully and tediously down towards the defect in the midline below the umbilicus. After tedious dissection about an 1 hour and 30 minutes, we were able to finally clear the small bowel from the hernia sac. There was dense adhesions of the both bowel as well as urinary bladder to the anterior stretched out fascia of the abdominal cavity. Given the finding, once this was done, I noted that bladder itself appears to be very densely adherent to the scar tissue of the hernia and after tedious dissection, I decided that in the patient's best interest would be to open up that hernia and evaluate both the bowel and bladder and removed far away from the crotch of the hernia in order to be able to repair it. At this point, we proceeded with making a midline incision through thick tissue of the scar tissue from the previous incisions. Once this was done, access to the abdominal cavity was obtained and pneumoperitoneum was released. Trocars were now removed. The hernia sac, which was carefully dissected out to the lateral aspect of the transversalis fascia, was now grabbed with Fidel clamps and reapproximated. It then appeared that defect was previously present, was now manageable with almost complete closure of the abdominal cavity with the underlying mesh. A Parietex 15 x 10 cm mesh was used, now once the access was obtained and pneumoperitoneum was released, I carefully evaluated the underlying bowel, there appeared to be two small areas of , which were in the area of the scar tissue and those were repaired with simple 3-0 silk stitches. Now, the Parietex mesh was sutured in using 0 Prolene stitches in a running fashion in ordered to narrow the cup between the muscles, those stitches were placed posterior to the edge of the rectus muscles and fascia. Once the fascia edges were prepared for the closure, I then proceeded with placing the mesh and completely sutured it in place. The overlying hernia sac was resected and the edges of the good fascia were reapproximated using 0 Prolene stitch in a running fashion. That completed the repair of the fascia, they have subcutaneous tissue that was copiously irrigated, Ld drain was placed into the subcutaneous tissue and positioned around the dissection site. Once this was completed, the suture was placed to hold to anchor the drain to the skin. The abdominal wound was now copiously irrigated and all irrigant fluid suctioned out and the wounds were then carefully closed. The skin itself was closed using the surgical leatha. Subcutaneous tissues using 3-0 Vicryl, and the fascia using #1 Prolene. Prior to the closure, careful evaluation of the bladder showed presence of some as well as some bladder muscle thickening due to the dense adhesions. This was carefully repaired using 0 Vicryl stitch and imbricating the edges of the normal bladder wall together with the simple stitches over the area of the . Once this was completed, the bladder was then carefully squeezed and appeared there was no leak of the urine to the outside. At this point, we proceeded with finishing of the closure of the wound, subcutaneous tissues were closed using 3-0 Vicryl and skin was closed using surgical leatha. Once all the wounds were closed, the sterile dressing was applied to the wound. The patient tolerated the procedure well and there were no complications. The patient was awakened and transferred to the recovery room for further observation. Nasir Agarwal MD ELSIE
[2017-08-21 16:37] VITALS: O2SAT 95
[2017-08-21] MEDS: Metoprolol Succinate 100 mg XL Tab PO SCH (18:17)
[2017-08-21] MEDS ORDERED: Potassium Chloride 20 MEQ in Dextrose 5%/0.45% NS 1,000 ML IV SCH (20:00)
[2017-08-21 20:19] LABS: HEMATOCRIT 36.3 % (42.0-52.0); MEAN CELL VOLUME 96.5 fl (80.0-105.0); MEAN CORPUSCULAR HEMOGLOBIN 33.2 pg (25.0-35.0); MEAN CORPUSCULAR HGB CONC 34.4 g/dl (31.0-37.0); RED CELL DISTRIBUTION WIDTH 12.6 % (11.5-14.5); WHITE BLOOD COUNT 11.8 10^3/ul (4.5-11.0)
[2017-08-21 20:43] LABS: ALB/GLOB RATIO 1.3 (1.1-1.8); ALKALINE PHOSPHATASE 52 U/L (38-126); ALT/SGPT 47 U/L (7-56); AST/SGOT 44 U/L (17-59); BILIRUBIN,TOTAL 1.4 mg/dL (0.2-1.3); BLOOD UREA NITROGEN 10 mg/dL (7-21); CALCIUM 9.4 mg/dL (8.4-10.5); CARBON DIOXIDE 24 mmol/L (21-33); CHLORIDE 93 mmol/L (98-107); GFR AFRICAN-AMERICAN > 60; GLUCOSE,RANDOM 121 mg/dL (70-110); SODIUM 127 mmol/L (132-148); TOTAL PROTEIN 7.8 g/dL (5.8-8.3)
[2017-08-21] MEDS: Sodium Chloride 0.9% 1,000 ML IV SCH (22:04)
[2017-08-22] MEDS: Oxycodone/Acetaminophen 5/325 mg Tab PO PRN (04:07)
[2017-08-22 07:10] LABS: BASO # 0.01 K/mm3 (0.0-2.0); BASO % 0.1 % (0.0-3.0); EOS # 0.3 (0.0-0.7); EOS % 2.8 % (1.5-5.0); GRAN # 9.32 (1.4-6.5); GRAN % 77.8 % (50.0-68.0); HEMATOCRIT 34.4 % (42.0-52.0); LYMPH # 0.9 (1.2-3.4); LYMPH % 7.6 % (22.0-35.0); MEAN CELL VOLUME 97.5 fl (80.0-105.0); MEAN CORPUSCULAR HEMOGLOBIN 32.6 pg (25.0-35.0); MEAN CORPUSCULAR HGB CONC 33.4 g/dl (31.0-37.0); MEAN PLATELET VOLUME 10.5 fl (7.0-11.0); MONO # 1.4 (0.1-0.6); MONO % 11.7 % (1.0-6.0); RED CELL DISTRIBUTION WIDTH 12.7 % (11.5-14.5)
[2017-08-22 07:11] LABS: ALB/GLOB RATIO 1.2 (1.1-1.8); ALKALINE PHOSPHATASE 44 U/L (38-126); ALT/SGPT 43 U/L (7-56); AST/SGOT 50 U/L (17-59); BILIRUBIN,TOTAL 1.3 mg/dL (0.2-1.3); BLOOD UREA NITROGEN 9 mg/dL (7-21); CALCIUM 9.1 mg/dL (8.4-10.5); CARBON DIOXIDE 26 mmol/L (21-33); CHLORIDE 94 mmol/L (98-107); CHOLESTEROL 190 mg/dL (130-200); GFR AFRICAN-AMERICAN > 60; GLUCOSE,RANDOM 107 mg/dL (70-110); POTASSIUM 4.2 mmol/L (3.6-5.0); SODIUM 127 mmol/L (132-148); TOTAL PROTEIN 7.1 g/dL (5.8-8.3)
[2017-08-22 08:46] VITALS: BP 135/75; PULSE 69; RESP 18; TEMP 98.3
[2017-08-22] MEDS: Enoxaparin 40 mg Syringe SC SCH (09:34)
[2017-08-22] MEDS: Sodium Chloride 0.9% 1,000 ML IV SCH (09:34)
--- NOTE | 2017-08-22 13:34 | CP.PCM.DIS ---
<TyroneMary - Last Filed: 08/22/17 13:30> Provider - Provider Date of Admission: 08/21/17 18:33 Attending physician: Nasir Agarwal MD Primary care physician: Elmer Rehman MD Consults: Dr. Gramajo (Urology) Time Spent in preparation of Discharge (in minutes): 20 Diagnosis - Discharge Diagnosis (1) Incisional hernia Status: Resolved Hospital Course - Lab Results Lab Results: Most Recent Lab Values WBC 12.0 10^3/ul (4.5-11.0) H 08/22/17 06:40 RBC 3.53 10^6/uL (3.5-6.1) 08/22/17 06:40 Hgb 11.5 g/dL (14.0-18.0) L 08/22/17 06:40 Hct 34.4 % (42.0-52.0) L 08/22/17 06:40 MCV 97.5 fl (80.0-105.0) 08/22/17 06:40 MCH 32.6 pg (25.0-35.0) 08/22/17 06:40 MCHC 33.4 g/dl (31.0-37.0) 08/22/17 06:40 RDW 12.7 % (11.5-14.5) 08/22/17 06:40 Plt Count 204 10^3/uL (120.0-450.0) 08/22/17 06:40 MPV 10.5 fl (7.0-11.0) 08/22/17 06:40 Gran % 77.8 % (50.0-68.0) H 08/22/17 06:40 Lymph % (Auto) 7.6 % (22.0-35.0) L 08/22/17 06:40 [place] % (Auto) 11.7 % (1.0-6.0) H 08/22/17 06:40 Eos % (Auto) 2.8 % (1.5-5.0) 08/22/17 06:40 Baso % (Auto) 0.1 % (0.0-3.0) 08/22/17 06:40 Gran # 9.32 (1.4-6.5) H 08/22/17 06:40 Lymph # 0.9 (1.2-3.4) L 08/22/17 06:40 [place] # 1.4 (0.1-0.6) H 08/22/17 06:40 Eos # 0.3 (0.0-0.7) 08/22/17 06:40 Baso # 0.01 K/mm3 (0.0-2.0) 08/22/17 06:40 Sodium 127 mmol/L (132-148) L 08/22/17 06:40 Potassium 4.2 mmol/L (3.6-5.0) 08/22/17 06:40 Chloride 94 mmol/L (98-107) L 08/22/17 06:40 Carbon Dioxide 26 mmol/L (21-33) 08/22/17 06:40 Anion Gap 11 (10-20) 08/22/17 06:40 BUN 9 mg/dL (7-21) 08/22/17 06:40 Creatinine 0.8 mg/dl (0.8-1.5) 08/22/17 06:40 Est GFR ( Amer) > 60 08/22/17 06:40 Est GFR (Non-Af Amer) > 60 08/22/17 06:40 Random Glucose 107 mg/dL (70-110) 08/22/17 06:40 Calcium 9.1 mg/dL (8.4-10.5) 08/22/17 06:40 Total Bilirubin 1.3 mg/dL (0.2-1.3) 08/22/17 06:40 AST 50 U/L (17-59) 08/22/17 06:40 ALT 43 U/L (7-56) 08/22/17 06:40 Alkaline Phosphatase 44 U/L (38-126) 08/22/17 06:40 Total Protein 7.1 g/dL (5.8-8.3) 08/22/17 06:40 Albumin 3.9 g/dL (3.0-4.8) 08/22/17 06:40 Globulin 3.2 gm/dL 08/22/17 06:40 Albumin/Globulin Ratio 1.2 (1.1-1.8) 08/22/17 06:40 Triglycerides 49 mg/dL (35-160) 08/22/17 06:40 Cholesterol 190 mg/dL (130-200) 08/22/17 06:40 LDL Cholesterol Direct 97 mg/dL (0-129) 08/22/17 06:40 HDL Cholesterol 76 mg/dL (29-60) H 08/22/17 06:40 - Hospital Course Hospital Course: 71yo M admitted to the hospital for pain control on 08/20 following elective repair of an incisional hernia. Post-operatively pt. developed urinary retention and required bethea catheter, this was removed on POD #1 however pt. again developed urinary retention which resolved after approx 8 hours at which time he was able to void. Urology was consulted for outpatient management. On POD 2 pt was ambulating, voiding on his own, tolerating regular diet, and pain was well controlled with PO medications. Pt was instructed on management of his ld drain at home and was discharged home with Abx and Pain meds. Discharge Exam - Head Exam Head Exam: ATRAUMATIC, NORMAL INSPECTION, NORMOCEPHALIC - Respiratory Exam Respiratory Exam: NORMAL BREATHING PATTERN. absent: Respiratory Distress - GI/Abdominal Exam GI & Abdominal Exam: Soft, Tenderness (appropriately). absent: Distended, Guarding, Rebound Additional comments: midline incision C/D/I with leatha Ld drain in RLQ with serosanguinous drainage - Neurological Exam Neurological exam: Alert, Oriented x3 - Psychiatric Exam Psychiatric exam: Normal Affect, Normal Mood - Skin Skin Exam: Dry, Intact Discharge Plan - Discharge Medications Prescriptions: Cephalexin [cephalexin] 250 mg PO TID #21 cap traMADol [Ultram] 50 mg PO Q6H PRN #30 tab PRN Reason: Pain, Moderate (4-7) - Follow Up Plan Condition: GOOD Disposition: HOME/ ROUTINE Instructions: Heart Failure (GEN), Kay[place]-Delarosa Drain Care (GEN), Inguinal Hernia (GEN), Acute Wound Care (GEN), Perforated Bowel (GEN) Additional Instructions: Resume regular diet and light activities. NO Heavy lifting >10lbs for 6 weeks. Take Ultram as needed for pain. Take Keflex as prescribed for 7 days. Empty drain at home and record output as instructed. Follow-up in office next week Sunday08/29/[address] Agarwal. Call Dr. Gramajo (urologist) for an appointment sometime within the next 2 weeks. Referrals: Navdeep Gramajo MD [Staff Provider] - Nasir Agarwal MD [Staff Provider] - Elmer Rehman MD [Primary Care Provider] - <Nasir Agarwal - Last Filed: 08/22/17 19:40> Provider - Provider Date of Admission: 08/21/17 18:33 Attending physician: Nasir Agarwal MD Primary care physician: Elmer Rehman MD Hospital Course - Lab Results Lab Results: Most Recent Lab Values WBC 12.0 10^3/ul (4.5-11.0) H 08/22/17 06:40 RBC 3.53 10^6/uL (3.5-6.1) 08/22/17 06:40 Hgb 11.5 g/dL (14.0-18.0) L 08/22/17 06:40 Hct 34.4 % (42.0-52.0) L 08/22/17 06:40 MCV 97.5 fl (80.0-105.0) 08/22/17 06:40 MCH 32.6 pg (25.0-35.0) 08/22/17 06:40 MCHC 33.4 g/dl (31.0-37.0) 08/22/17 06:40 RDW 12.7 % (11.5-14.5) 08/22/17 06:40 Plt Count 204 10^3/uL (120.0-450.0) 08/22/17 06:40 MPV 10.5 fl (7.0-11.0) 08/22/17 06:40 Gran % 77.8 % (50.0-68.0) H 08/22/17 06:40 Lymph % (Auto) 7.6 % (22.0-35.0) L 08/22/17 06:40 [place] % (Auto) 11.7 % (1.0-6.0) H 08/22/17 06:40 Eos % (Auto) 2.8 % (1.5-5.0) 08/22/17 06:40 Baso % (Auto) 0.1 % (0.0-3.0) 08/22/17 06:40 Gran # 9.32 (1.4-6.5) H 08/22/17 06:40 Lymph # 0.9 (1.2-3.4) L 08/22/17 06:40 [place] # 1.4 (0.1-0.6) H 08/22/17 06:40 Eos # 0.3 (0.0-0.7) 08/22/17 06:40 Baso # 0.01 K/mm3 (0.0-2.0) 08/22/17 06:40 Sodium 127 mmol/L (132-148) L 08/22/17 06:40 Potassium 4.2 mmol/L (3.6-5.0) 08/22/17 06:40 Chloride 94 mmol/L (98-107) L 08/22/17 06:40 Carbon Dioxide 26 mmol/L (21-33) 08/22/17 06:40 Anion Gap 11 (10-20) 08/22/17 06:40 BUN 9 mg/dL (7-21) 08/22/17 06:40 Creatinine 0.8 mg/dl (0.8-1.5) 08/22/17 06:40 Est GFR ( Amer) > 60 08/22/17 06:40 Est GFR (Non-Af Amer) > 60 08/22/17 06:40 Random Glucose 107 mg/dL (70-110) 08/22/17 06:40 Calcium 9.1 mg/dL (8.4-10.5) 08/22/17 06:40 Total Bilirubin 1.3 mg/dL (0.2-1.3) 08/22/17 06:40 AST 50 U/L (17-59) 08/22/17 06:40 ALT 43 U/L (7-56) 08/22/17 06:40 Alkaline Phosphatase 44 U/L (38-126) 08/22/17 06:40 Total Protein 7.1 g/dL (5.8-8.3) 08/22/17 06:40 Albumin 3.9 g/dL (3.0-4.8) 08/22/17 06:40 Globulin 3.2 gm/dL 08/22/17 06:40 Albumin/Globulin Ratio 1.2 (1.1-1.8) 08/22/17 06:40 Triglycerides 49 mg/dL (35-160) 08/22/17 06:40 Cholesterol 190 mg/dL (130-200) 08/22/17 06:40 LDL Cholesterol Direct 97 mg/dL (0-129) 08/22/17 06:40 HDL Cholesterol 76 mg/dL (29-60) H 08/22/17 06:40
== END 2017-08-22 12:49 | disposition home or self-care (01) ==
LOC: SDS 06:05 → 5RNO 13:55 → SDS 08-21 18:33 → 5RNO 08-21 18:33
PROVIDERS: ADMIT General Practice; ATTEND General Practice
DX: K43.0 Incisional hernia with obstruction, without gangrene (principal); K66.0 Peritoneal adhesions (postprocedural) (postinfection); N99.89 Other postprocedural complications and disorders of genitourinary system; R33.9 Retention of urine, unspecified; Y83.8 Other surgical procedures as the cause of abnormal reaction of the patient, or of later complication, without mention of misadventure at the time of the procedure
CPT/HCPCS: 36415; 49329; 49655; 51860; 80053; 80061; 85025; 85027; 88302; C1781; G0378; J0690; J1170; J2001; J2250; J2405; J2704; J2710; J3010; J7040; J7120

== ENCOUNTER 2017-08-24 10:37 | Inpatient (IN) | payer MEDICARE, BC ==
[2017-08-24 10:37] VITALS: PULSE 117; BMI 28.3
[2017-08-24] MEDS ORDERED: Sodium Chloride 0.9% 1,000 ML IV STA (11:05)
--- NOTE | 2017-08-24 11:05 | ED PDOC ---
Arrival/HPI - General Chief Complaint: Male Genitourinary Time Seen by Provider: 08/24/17 10:51 Historian: Patient - History of Present Illness Narrative History of Present Illness (Text): 08/24/17 11:10 A 71 year old male, whose past medical history includes A-Fib, CABG, CAD, hypertension, s/p incisional hernia repair 4 days ago, presents to the emergency department with 3 day duration diarrhea, difficulty eating, sleeping, and swallowing, palpitations, weakness, and dizziness. The patient states that he had a hernia repair 4 days ago and was discharged 2 days ago without any of his current symptoms. The patient denies fevers, chills, headache, chest pain, shortness of breath, dyspnea on exertion, cough, nausea, vomiting, back pain, neck pain, urinary changes, or any other complaint. PMD: Dr. Yung Rehman Surgeon: Dr. Paxton Agarwal Time/Duration: Other (Yesterday) Symptom Onset: Sudden Symptom Course: Unchanged Activities at Onset: Rest, Light Context: Home Past Medical History - Provider Review Nursing Documentation Reviewed: Yes - Infectious Disease Hx of Infectious Diseases: None - Reproductive Currently : No - Cardiac Hx Hypertension: Yes Hx Pacemaker: No - Pulmonary Hx Pneumonia: Yes - Neurological Hx Neurological Disorder: No - HEENT Hx HEENT Disorder: No - Renal Hx Renal Failure: No - Endocrine/Metabolic Hx Hypothyroidism: No - Hematological/Oncological Hx Blood Disorders: No Hx Cancer: No - Integumentary Hx Dermatological Disorder: No - Musculoskeletal/Rheumatological Hx Musculoskeletal Disorders: No Hx Falls: No - Gastrointestinal Hx Gastrointestinal Disorders: Yes (PERFORATED BOWELS,FECAL PERITONITIS, COLOSTOMY,) Hx Colostomy: Yes Hx Diverticulitis: Yes - Genitourinary/Gynecological Hx Genitourinary Disorders: No - Psychiatric Hx Emotional Abuse: No Hx Physical Abuse: No Hx Substance Use: No - Surgical History Hx Open Heart Surgery: Yes Hx Orthopedic Surgery: Yes Other/Comment: COLOSTOMY, PERFORATED BOWEL - Anesthesia Hx Anesthesia Reactions: No Hx Malignant Hyperthermia: No - Suicidal Assessment Feels Threatened In Home Enviroment: No Family/Social History - Physician Review Nursing Documentation Reviewed: Yes Family/Social History: No Known Family HX Smoking Status: Never Smoked Hx Alcohol Use: Yes (BEER OCCASIONALLY) Hx Substance Use: No Allergies/Home Meds Allergies/Adverse Reactions: Allergies No Known Allergies Allergy (Verified 12/18/16 11:28) Home Medications: Home Meds Medication Instructions Recorded Confirmed Amiodarone [Cordarone] 100 mg PO QOTHERDAY 12/05/16 08/24/17 Aspirin [Ecotrin] 81 mg PO QAM 12/05/16 08/24/17 Metoprolol Succinate 100 mg PO QPM 12/05/16 08/24/17 Pitavastatin Calcium [Livalo] 2 mg PO QAM 12/05/16 08/24/17 Valsartan [Diovan] 320 mg PO QAM 12/05/16 08/24/17 Review of Systems - Physician Review All systems were reviewed & negative as marked: Yes - Review of Systems Constitutional: absent: Fevers Gastrointestinal: absent: Vomiting Physical Exam - Physical Exam Narrative Physical Exam (Text): 08/24/17 11:15 Constitutional: No acute distress. Head: Normocephalic. Atraumatic. Eyes: PERRL. ENT: Moist mucous membranes. Dry mucous membranes. Neck: Supple. Cardiovascular: Regular rate. Tachycardic. Chest: No tenderness. Respiratory: Clear to auscultation bilaterally. GI: Soft. Nondistended. No significant abdominal tenderness. Multiple incisions on abdomen with leatha; no discharge or erythema. Ecchymosis to the left sided groin. ROBBIE drain to the right groin with sanguineous collected material. Back: No CVA tenderness. Musculoskeletal: No tenderness or swelling of extremities. Skin: No rash. Neurologic: Alert, no focal deficit. Vital Signs Reviewed: Yes Vital Signs Temp Pulse Resp BP Pulse Ox 08/24/17 14:25 99.1 F 93 H 18 114/66 96 08/24/17 10:43 98.2 F 98 H 16 91/64 L 98 08/24/17 10:37 98.2 F 98 H 16 91/64 L 98 Temperature: Afebrile Blood Pressure: Hypotensive Pulse: Tachycardic Respiratory Rate: Normal Appearance: Positive for: Well-Appearing, Non-Toxic, Comfortable Pain Distress: None Mental Status: Positive for: Alert and Oriented X 3 Medical Decision Making ED Course and Treatment: Plan: -- EKG -- Labs -- IV Fluids -- Reassess and disposition Progress Notes: EKG: Ordered, reviewed, and independently interpreted the EKG. Rate : 92 BPM Rhythm : A- Fib Interpretation : No ST elevation Dr. Damon accepts patient to his service, recommends Vanco in addition to Zosyn. resident manager notified. Bed Control alerts that patient must be admitted to physician with current admitting privileges. Dr. Nu Rehman accepts to his service and recommends Dr. Sarah for cardiology consultation. resident manager aware, will inform Dr. Damon. - Lab Interpretations Lab Results: 08/24/17 11:47 08/24/17 11:47 Lab Results 08/24/17 11:47: Blood Type O POSITIVE, Antibody Screen Negative, BBK History Checked Patient has bt 08/24/17 11:47: Sodium 130 L, Potassium 3.5 L, Chloride 96 L, Carbon Dioxide 25 , Anion Gap 13, BUN 14, Creatinine 0.8, Est GFR ( Amer) > 60, Est GFR ( Non-Af Amer) > 60, Random Glucose 135 H, Calcium 9.3, Total Bilirubin 1.1, AST 89 H D, ALT 81 H, Alkaline Phosphatase 79, Total Protein 6.9, Albumin 3.5, Globulin 3.4, Albumin/Globulin Ratio 1.0 L 08/24/17 11:47: PT 13.0 H, INR 1.18 H, APTT 27.4 08/24/17 11:47: WBC 20.2 H D, RBC 3.53, Hgb 11.6 L, Hct 33.9 L, MCV 96.0, MCH 32.9, MCHC 34.2, RDW 12.6, Plt Count 250, MPV 10.0, Gran % 80.5 H, Lymph % (Auto ) 4.1 L, [place] % (Auto) 15.0 H, Eos % (Auto) 0.3 L, Baso % (Auto) 0.1, Gran # 16.25 H, Lymph # 0.8 L, [place] # 3.0 H, Eos # 0.1, Baso # 0.02, Neutrophils % ( Manual) 91 H, Band Neutrophils % 3 H, Lymphocytes % (Manual) 3 L, Monocytes % ( Manual) 3, Platelet Evaluation Normal, Anisocytosis (manual) Slight I have reviewed the lab results: Yes - EKG Interpretation Interpreted by ED Physician: Yes Type: 12 lead EKG - Medication Orders Current Medication Orders: Potassium Chloride 30 meq/ (Sodium Chloride) 115 mls @ 125 mls/hr IV .Q56M SUNIL Metronidazole (Flagyl) 500 mg PO TID SUNIL PRN Reason: Protocol Tramadol HCl (Ultram) 50 mg PO Q6H PRN PRN Reason: Pain, moderate (4-7) Discontinued Medications Sodium Chloride (Sodium Chloride 0.9%) 1,000 mls @ 999 mls/hr IV .Q1H1M STA Stop: 08/24/17 12:05 Last Admin: 08/24/17 11:50 Dose: 999 mls/hr eMAR Start Stop Document 08/24/17 11:50 RG (Rec: 08/24/17 11:[address] [id number] Intravenous Solution Start Date 08/24/17 Start Time 11:53 End Date 08/24/17 End time 12:53 Total Infusion Time 60 Piperacillin Sod/Tazobactam Sod (Zosyn 4.5 Gm In Ns 100ml) 4.5 gm in 100 mls @ 200 mls/hr IVPB STAT STA PRN Reason: Protocol Stop: 08/24/17 12:25 Last Admin: 08/24/17 13:30 Dose: 200 mls/hr eMAR Start Stop Document 08/24/17 13:30 RG (Rec: 08/24/17 13:[address] [id number]) Intravenous Solution Start Date 08/24/17 Start Time 13:41 Vancomycin HCl (Vancomycin 1gm) 1 gm in 250 mls @ 167 mls/hr IVPB STAT STA PRN Reason: Protocol Stop: 08/24/17 14:26 Last Admin: 08/24/17 14:37 Dose: 167 mls/hr eMAR Start Stop Document 08/24/17 14:37 RG (Rec: 08/24/17 14:[address] [facility] [id number]) Intravenous Solution Start Date 08/24/17 Start Time 14:38 Pneumococcal Polyvalent Vaccine (Pneumovax 23 Vaccine) 0.5 ml IM .ONCE ONE Stop: 08/24/17 15:45 - Scribe Statement The provider has reviewed the documentation as recorded by the Scribe Sophie Huerta Provider Scribe Attestation: All medical record entries made by the Scribe were at my direction and personally dictated by me. I have reviewed the chart and agree that the record accurately reflects my personal performance of the history, physical exam, medical decision making, and the department course for this patient. I have also personally directed, reviewed, and agree with the discharge instructions and disposition. Disposition/Present on Arrival - Present on Arrival Any Indicators Present on Arrival: No History of DVT/PE: No History of Uncontrolled Diabetes: No Urinary Catheter: No History of Decub. Ulcer: No History Surgical Site Infection Following: None - Disposition Have Diagnosis and Disposition been Completed?: Yes Diagnosis: Leukocytosis, Dehydration, Diarrhea Disposition: HOSPITALIZED Disposition Time: 12:57 Patient Plan: Admission Condition: FAIR
[2017-08-24 11:53] LABS: BASO # 0.02 K/mm3 (0.0-2.0); BASO % 0.1 % (0.0-3.0); EOS # 0.1 (0.0-0.7); EOS % 0.3 % (1.5-5.0); GRAN # 16.25 (1.4-6.5); GRAN % 80.5 % (50.0-68.0); HEMATOCRIT 33.9 % (42.0-52.0); LYMPH # 0.8 (1.2-3.4); LYMPH % 4.1 % (22.0-35.0); MEAN CORPUSCULAR HEMOGLOBIN 32.9 pg (25.0-35.0); MEAN CORPUSCULAR HGB CONC 34.2 g/dl (31.0-37.0); PLATELET COUNT 250 10^3/uL (120.0-450.0); RED CELL DISTRIBUTION WIDTH 12.6 % (11.5-14.5); WHITE BLOOD COUNT 20.2 10^3/ul (4.5-11.0)
[2017-08-24] MEDS ORDERED: Piperacill/Tazo 4.5gm in NS 4.5 GM/100 ML BAG IVPB STA (11:56)
[2017-08-24 12:04] LABS: INR 1.18 (0.93-1.08); PARTIAL THROMBOPLASTIN TIME 27.4 Seconds (25.1-36.5)
[2017-08-24 12:15] LABS: ALKALINE PHOSPHATASE 79 U/L (38-126); ALT/SGPT 81 U/L (7-56); AST/SGOT 89 U/L (17-59); BILIRUBIN,TOTAL 1.1 mg/dL (0.2-1.3); BLOOD UREA NITROGEN 14 mg/dL (7-21); CALCIUM 9.3 mg/dL (8.4-10.5); CARBON DIOXIDE 25 mmol/L (21-33); CHLORIDE 96 mmol/L (98-107); GFR AFRICAN-AMERICAN > 60; GLUCOSE,RANDOM 135 mg/dL (70-110); TOTAL PROTEIN 6.9 g/dL (5.8-8.3)
[2017-08-24 12:16] LABS: SODIUM 130 mmol/L (132-148)
[2017-08-24 12:17] LABS: POTASSIUM 3.5 mmol/L (3.6-5.0)
[2017-08-24 12:33] LABS: BAND 3 % (0-2); NEUTROPHIL 91 % (50.0-70.0)
[2017-08-24 12:34] LABS: ANISOCYTOSIS SLIGHT; PLATELET ESTIMATE NORMAL (NORMAL)
[2017-08-24] MEDS ORDERED: Vancomycin 1gm in NS 250ml 1 GM/250 ML BAG IVPB STA (12:57)
--- NOTE | 2017-08-24 14:12 | CP.PCM.CON ---
History of Present Illness - History of Present Illness History of Present Illness: General Surgery - Dr. Agarwal 71M w/ hx of HTN, Afib, CAD, CABG, Diverticulitis, now recently s/p incisional hernia repair on 08/20, presenting with lower abdominal pain, diarrhea, and weakness for the past 2 days. Pt was discharged home on 08/22 at which point he states he felt fine. That evening pt began having loose watery stools, multiple episodes of diarrhea/day. Yesterday pt developed poor appetite, lethargy and weakness. He states he took his BP at home and it was low ~100/90 , and HR which he reports was elevated at 120. This morning he continued to experience these symptoms and decided to come to the hospital. Pt denies any fevers or chills, vomiting, constipation, dysuria or hematuria. He notes that he has had decreased urine output but attributes this to very poor PO intake and dehydration. Pt has a ancelmo drain in place and has been recording output at home which has been approx 50-100cc/day serosanguinous. PMH: HTN, AFib, CAD, Diverticulitis PSH: 3-vessel Cabg, Alban's procedure 2015, Colostomy reversal February 2017 , Incisional hernia repair 08/20/17 Meds as per chart NKDA Review of Systems - Review of Systems All systems: reviewed and no additional remarkable complaints except (as per HPI ) Past Patient History - Infectious Disease Hx of Infectious Diseases: None - Past Social History Smoking Status: Never Smoked - CARDIAC Hx Hypertension: Yes Hx Pacemaker: No - PULMONARY Hx Pneumonia: Yes - NEUROLOGICAL Hx Neurological Disorder: No - HEENT Hx HEENT Problems: No - RENAL Hx Renal Failure: No - ENDOCRINE/METABOLIC Hx Hypothyroidism: No - HEMATOLOGICAL/ONCOLOGICAL Hx Blood Disorders: No Hx Cancer: No - INTEGUMENTARY Hx Dermatological Problems: No - MUSCULOSKELETAL/RHEUMATOLOGICAL Hx Musculoskeletal Disorders: No Hx Falls: No - GASTROINTESTINAL Hx Gastrointestinal Disorders: Yes (PERFORATED BOWELS,FECAL PERITONITIS, COLOSTOMY,) Hx Colostomy: Yes Hx Diverticulitis: Yes - GENITOURINARY/GYNECOLOGICAL Hx Genitourinary Disorders: No - PSYCHIATRIC Hx Emotional Abuse: No Hx Physical Abuse: No Hx Substance Use: No - SURGICAL HISTORY Hx Open Heart Surgery: Yes Hx Orthopedic Surgery: Yes Other/Comment: COLOSTOMY, PERFORATED BOWEL - ANESTHESIA Hx Anesthesia Reactions: No Hx Malignant Hyperthermia: No Meds Allergies/Adverse Reactions: Allergies Allergy/AdvReac Type Severity Reaction Status Date / Time No Known Allergies Allergy Verified 12/18/16 11:28 - Medications Medications: Current Medications Vancomycin HCl (Vancomycin 1gm) 1 gm in 250 mls @ 167 mls/hr IVPB STAT STA PRN Reason: Protocol Stop: 08/24/17 14:26 Potassium Chloride 30 meq/ (Sodium Chloride) 115 mls @ 125 mls/hr IV .Q56M SUNIL Metronidazole (Flagyl) 500 mg PO TID SUNIL PRN Reason: Protocol Physical Exam - Constitutional Appears: No Acute Distress - Head Exam Head Exam: ATRAUMATIC, NORMAL INSPECTION, NORMOCEPHALIC - Eye Exam Eye Exam: EOMI, Normal appearance - ENT Exam ENT Exam: Mucous Membranes Dry - Respiratory Exam Respiratory Exam: NORMAL BREATHING PATTERN. absent: Respiratory Distress - Cardiovascular Exam Cardiovascular Exam: Tachycardia (90s) - GI/Abdominal Exam GI & Abdominal Exam: Soft, Tenderness (appropriate post op tenderness, midline incision w/ leatha c/d/i, ancelmo drain in RLQ w/ serosanguinous drainage). absent: Distended, Firm, Guarding, Hernia, Rebound, Rigid - Neurological Exam Neurological exam: Alert, Oriented x3 - Psychiatric Exam Psychiatric exam: Normal Affect, Normal Mood - Skin Skin Exam: Dry, Intact Results - Vital Signs Recent Vital Signs: Last Vital Signs Temp 98.2 F 08/24/17 10:43 Pulse 98 H 08/24/17 10:43 Resp 16 08/24/17 10:43 BP 91/64 L 08/24/17 10:43 Pulse Ox 98 08/24/17 10:43 - Labs Result Diagrams: 08/24/17 11:47 08/24/17 11:47 Labs: Laboratory Results - last 24 hr 08/24/17 08/24/17 08/24/17 11:47 11:47 11:47 WBC 20.2 H D RBC 3.53 Hgb 11.6 L Hct 33.9 L MCV 96.0 MCH 32.9 MCHC 34.2 RDW 12.6 Plt Count 250 MPV 10.0 Gran % 80.5 H Lymph % (Auto) 4.1 L [place] % (Auto) 15.0 H Eos % (Auto) 0.3 L Baso % (Auto) 0.1 Gran # 16.25 H Lymph # 0.8 L [place] # 3.0 H Eos # 0.1 Baso # 0.02 Neutrophils % (Manual) 91 H Band Neutrophils % 3 H Lymphocytes % (Manual) 3 L Monocytes % (Manual) 3 Platelet Evaluation Normal Anisocytosis (manual) Slight PT 13.0 H INR 1.18 H APTT 27.4 Sodium 130 L Potassium 3.5 L Chloride 96 L Carbon Dioxide 25 Anion Gap 13 BUN 14 Creatinine 0.8 Est GFR ( Amer) > 60 Est GFR (Non-Af Amer) > 60 Random Glucose 135 H Calcium 9.3 Total Bilirubin 1.1 AST 89 H D ALT 81 H Alkaline Phosphatase 79 Total Protein 6.9 Albumin 3.5 Globulin 3.4 Albumin/Globulin Ratio 1.0 L Blood Type Antibody Screen BBK History Checked 08/24/17 11:47 WBC RBC Hgb Hct MCV MCH MCHC RDW Plt Count MPV Gran % Lymph % (Auto) [place] % (Auto) Eos % (Auto) Baso % (Auto) Gran # Lymph # [place] # Eos # Baso # Neutrophils % (Manual) Band Neutrophils % Lymphocytes % (Manual) Monocytes % (Manual) Platelet Evaluation Anisocytosis (manual) PT INR APTT Sodium Potassium Chloride Carbon Dioxide Anion Gap BUN Creatinine Est GFR ( Amer) Est GFR (Non-Af Amer) Random Glucose Calcium Total Bilirubin AST ALT Alkaline Phosphatase Total Protein Albumin Globulin Albumin/Globulin Ratio Blood Type O POSITIVE Antibody Screen Negative BBK History Checked Patient has bt Assessment & Plan - Assessment and Plan (Free Text) Assessment: 71M POD #4 s/p incisional hernia repair w/ 2 days of watery diarrhea and malaise , +Leukocytosis Plan: -Admitted to medical service -F/U CDiff -Empirically treat with PO Flagyl -IVF hydration -Monitor electrolytes -Monitor urine output -Strict Is/Os DW Dr. Any Hansen PGY3
[2017-08-24 14:52] LABS: URINE APPEARANCE CLEAR (CLEAR); URINE BILIRUBIN SMALL (NEGATIVE); URINE BLOOD MODERATE (NEGATIVE); URINE COLOR YELLOW (YELLOW); URINE GLUCOSE (UA) NEGATIVE (NEGATIVE); URINE KETONE TRACE mg/dL (NEGATIVE); URINE LEUKOCYTE ESTERASE NEGATIVE Leu/uL (NEGATIVE); URINE PROTEIN 100 mg/dL (<30 mg/dL); URINE UROBILINOGEN 0.2 E.U./dL (<1 E.U./dL)
[2017-08-24 14:57] LABS: URINE BACTERIA TRACE (NEG); URINE RBC 0 - 2 /hpf (0-2)
[2017-08-24] MEDS ORDERED: Pneumococcal 23-Valent Vaccine IM ONE (15:44)
[2017-08-24] MEDS ORDERED: Influenza Vaccine 60 mcg/0.5 mL SYR (4YR UP) IM ONE (15:44)
[2017-08-24] MEDS: Potassium Chloride 30 MEQ in Sodium Chloride 0.9% 1,000 ML IV SCH (19:08)
--- NOTE | 2017-08-24 21:06 | CP.PCM.PN ---
Subjective - Date & Time of Evaluation Date of Evaluation: 08/24/17 Time of Evaluation: 21:05 - Subjective Subjective: S:Patient requested a sleeping pill. Has no other complaints. Medical record was reviewed. O: Last Vital Signs 3 Temp 98.4 F 08/25/17 11:44 Pulse 91 H 08/25/17 18:00 Resp 20 08/25/17 11:44 BP 142/89 08/25/17 17:24 Pulse Ox 97 08/25/17 06:00 Awake, alert, not in distress. LUNGS: Normal breathing pattern. A:Adjustment insomnia. P: Benadryl 25 mg PO x 1. Objective - Vital Signs/Intake and Output Vital Signs (last 24 hours): Temp Pulse Resp BP Pulse Ox 98.5 F 96 H 20 121/77 92 L 08/24/17 16:00 08/24/17 16:00 08/24/17 16:00 08/24/17 16:00 08/24/17 16:00 - Medications Medications: Current Medications Amiodarone HCl (Cordarone) 100 mg PO DAILY [facility] Diphenhydramine HCl (Benadryl) 25 mg PO STAT STA Stop: 08/24/17 21:05 Potassium Chloride 30 meq/ (Sodium Chloride) 1,015 mls @ 125 mls/hr IV .Q8H8M [facility] Last Admin: 08/24/17 19:08 Dose: 125 mls/hr Metoprolol Succinate (Toprol Xl) 100 mg PO BRK [facility] Metronidazole (Flagyl) 500 mg PO TID [facility] PRN Reason: Protocol Last Admin: 08/24/17 19:08 Dose: 500 mg Ondansetron HCl (Zofran Inj) 4 mg IVP Q6H PRN PRN Reason: Nausea/Vomiting Last Admin: 08/24/17 19:09 Dose: 4 mg Tramadol HCl (Ultram) 50 mg PO Q6H PRN PRN Reason: Pain, moderate (4-7) Valsartan (Diovan) 320 mg PO DAILY [facility] - Labs Labs: PT 13.0 SECONDS (9.4-12.5) H 08/24/17 11:47 INR 1.18 (0.93-1.08) H 08/24/17 11:47 APTT 27.4 Seconds (25.1-36.5) 08/24/17 11:47
--- NOTE | 2017-08-24 23:04 | CARD ---
APPROVED REPORT EKG Measurement Heart [id number] <Conclusion> Atrial fibrillation Inferior infarct, age undetermined Anterior infarct, age undetermined Abnormal ECG
[2017-08-25] MEDS: Potassium Chloride 30 MEQ in Sodium Chloride 0.9% 1,000 ML IV SCH (02:00)
[2017-08-25 07:48] LABS: BASO # 0.03 K/mm3 (0.0-2.0); BASO % 0.2 % (0.0-3.0); EOS # 0.3 (0.0-0.7); EOS % 1.6 % (1.5-5.0); GRAN # 14.18 (1.4-6.5); GRAN % 76.4 % (50.0-68.0); HEMATOCRIT 32.3 % (42.0-52.0); LYMPH % 5.5 % (22.0-35.0); MEAN CELL VOLUME 97.3 fl (80.0-105.0); MEAN CORPUSCULAR HEMOGLOBIN 33.4 pg (25.0-35.0); MEAN CORPUSCULAR HGB CONC 34.4 g/dl (31.0-37.0); MEAN PLATELET VOLUME 10.3 fl (7.0-11.0); MONO % 16.3 % (1.0-6.0); RED CELL DISTRIBUTION WIDTH 12.6 % (11.5-14.5); WHITE BLOOD COUNT 18.5 10^3/ul (4.5-11.0)
[2017-08-25] MEDS ORDERED: Benzocaine/Menthol (Cepacol) Lozenge MT PRN (08:02)
[2017-08-25] MEDS: Metoprolol Succinate 100 mg XL Tab PO SCH (08:06)
[2017-08-25 08:11] LABS: ALKALINE PHOSPHATASE 89 U/L (38-126); ALT/SGPT 98 U/L (7-56); AST/SGOT 76 U/L (17-59); BILIRUBIN,TOTAL 0.9 mg/dL (0.2-1.3); BLOOD UREA NITROGEN 14 mg/dL (7-21); CALCIUM 8.6 mg/dL (8.4-10.5); CARBON DIOXIDE 23 mmol/L (21-33); CHLORIDE 104 mmol/L (98-107); GFR AFRICAN-AMERICAN > 60; GLUCOSE,RANDOM 101 mg/dL (70-110); MAGNESIUM 1.9 mg/dL (1.7-2.2); PHOSPHOROUS 2.9 mg/dL (2.5-4.5); POTASSIUM 3.7 mmol/L (3.6-5.0); SODIUM 135 mmol/L (132-148); TOTAL PROTEIN 6.3 g/dL (5.8-8.3)
[2017-08-25] MEDS ORDERED: Dextrose 5%/0.45% NS 1,000 ML IV SCH (10:30)
[2017-08-25] MEDS: Enoxaparin 80 mg Syringe SC SCH ×2 (10:43→21:30)
--- NOTE | 2017-08-25 11:25 | CON ---
DATE: 08/25/2017 REQUESTING PHYSICIAN: Dr. Rehman. REASON FOR CONSULTATION: Atrial fibrillation. HISTORY OF PRESENT ILLNESS: This is a 71-year-old man known to me with a history of coronary artery disease status post bypass surgery done with a history of paroxysmal atrial fibrillation and recent reversal of his colostomy. He is admitted with complaints of palpitations, weakness, diarrhea, poor oral intake and insomnia for the past several days. He underwent an incisional hernia repair several days ago. His symptoms have progressed since that time. In the emergency room, he is noted to be in atrial fibrillation with moderate ventricular response. He is currently seen on 3R and feels somewhat better, although he continues to have frequent bowel movements. He denies any chest pain or dyspnea at rest. His past history is known for the problems mentioned above. He underwent emergency partial colectomy for a ruptured diverticulum a year ago. He underwent reversal of his colostomy in December. He has a history of hypertension and LV dysfunction. He had been on Xarelto in the past, however, had frequent bleeding episodes and discontinued this. He had been maintained on amiodarone in an attempt to maintain sinus rhythm. CURRENT MEDICATIONS: Include amiodarone 100 mg daily, Diovan 320 mg daily, Flagyl, metoprolol 100 mg daily, and Ultram. ALLERGIES: NONE. SOCIAL HISTORY: He is a former smoker. He denies alcohol use. FAMILY HISTORY: Both parents are of age-related illness. REVIEW OF SYSTEMS: A 10-point review of systems is otherwise unremarkable. PHYSICAL EXAMINATION: GENERAL: He is a middle-aged man who appears comfortable at rest. VITAL SIGNS: His blood pressure is 150/84 with pulse of 100-120 and atrial fibrillation, respirations are 16. He is currently afebrile. HEENT: Normocephalic, atraumatic. NECK: Supple. No JVD noted. CHEST: Few scattered rhonchi heard. HEART: PMI displaced laterally with an irregular regular rhythm. ABDOMEN: Soft with mild incisional tenderness. Bowel sounds are present. A surgical drain is in place. EXTREMITIES: No edema. SKIN: Warm and dry. PSYCHIATRIC: Normal mood and affect. NEUROLOGIC: Alert and oriented x3. No gross motor sensory is appreciable. DIAGNOSTIC DATA: White count is 18.5 with hemoglobin and hematocrit of 11.1 and 32.3 and platelet count of 273,000. PT/PTT 13.0 and 27.4. Potassium is 3.7, BUN and creatinine 14 and 0.8. AST and ALT are 76 and 98. Electrocardiogram reveals atrial fibrillation with left ventricular response and nonspecific ST-T abnormalities. Chest x-ray is pending. IMPRESSION: 1. Recurrent atrial fibrillation despite amiodarone use. 2. Known coronary artery disease status post remote bypass surgery, clinically stable. 3. Left ventricular dysfunction, stable at present. 4. Rest of problems as noted. RECOMMENDATIONS: 1. His oral amiodarone will be increased in dose for now. His transaminases will need to be monitored as they are mildly elevated at present. 2. Beta-patti therapy will be continued at this time. 3. He is very reluctant to receive any anticoagulant therapy because of risk of bleeding; however, given his persistence of atrial fibrillation, this will be advisable to reduce his risk of thromboembolic events. For the interim, subcutaneous heparin will be administered. Digoxin can be added for heart rate control as needed. IV fluids can be continued for now. Baseline echocardiogram will be repeated. Thank you for this consultation. We will be happy to follow along for rest of the hospital course. Davion Gallo MD
[2017-08-25 11:44] VITALS: RESP 20
--- NOTE | 2017-08-25 13:26 | CP.PCM.PN ---
Subjective - Date & Time of Evaluation Date of Evaluation: 08/25/17 Time of Evaluation: 13:23 - Subjective Subjective: Surgery Pt s&e. NAEON. Denies F/C/N/V. Reports less diarrhea. Tolerating diet. Objective - Vital Signs/Intake and Output Vital Signs (last 24 hours): Temp Pulse Resp BP Pulse Ox 98.4 F 81 20 122/64 97 08/25/17 11:44 08/25/17 11:44 08/25/17 11:44 08/25/17 11:44 08/25/17 06:00 Intake and Output: 08/25/17 08/25/17 06:59 18:59 Intake Total 530 1000 Output Total 5 75 Balance 525 925 - Medications Medications: Current Medications Acetaminophen (Tylenol 325mg Tab) 650 mg PO Q4H PRN PRN Reason: Pain, moderate (4-7) Amiodarone HCl (Cordarone) 200 mg PO BID [facility] Benzocaine/Menthol (Cepacol Sore Throat) 1 mulu MT Q2H PRN PRN Reason: Sore Throat Last Admin: 08/25/17 12:39 Dose: 1 mulu Enoxaparin Sodium (Lovenox) 80 mg SC Q12H [facility] PRN Reason: Protocol Last Admin: 08/25/17 10:43 Dose: 80 mg Dextrose/Sodium Chloride (Dextrose 5%/0.45% Ns 1000 Ml) 1,000 mls @ 60 mls/hr IV .[id number] [facility] Last Admin: 08/25/17 10:44 Dose: 60 mls/hr Metoprolol Succinate (Toprol Xl) 100 mg PO BRK [facility] Last Admin: 08/25/17 08:06 Dose: 100 mg Metronidazole (Flagyl) 500 mg PO TID [facility] PRN Reason: Protocol Last Admin: 08/25/17 10:44 Dose: 500 mg Ondansetron HCl (Zofran Inj) 4 mg IVP Q6H PRN PRN Reason: Nausea/Vomiting Last Admin: 08/24/17 19:09 Dose: 4 mg Tramadol HCl (Ultram) 50 mg PO Q6H PRN PRN Reason: Pain, moderate (4-7) Valsartan (Diovan) 320 mg PO DAILY [facility] - Labs Labs: 08/25/17 06:30 08/25/17 06:36 PT 13.0 SECONDS (9.4-12.5) H 08/24/17 11:47 INR 1.18 (0.93-1.08) H 08/24/17 11:47 APTT 27.4 Seconds (25.1-36.5) 08/24/17 11:47 - Constitutional Appears: No Acute Distress - Head Exam Head Exam: ATRAUMATIC, NORMAL INSPECTION, NORMOCEPHALIC - Eye Exam Eye Exam: EOMI, Normal appearance, PERRL Pupil Exam: NORMAL ACCOMODATION, PERRL - ENT Exam ENT Exam: Mucous Membranes Moist, Normal Exam - Neck Exam Neck Exam: Full ROM, Normal Inspection. absent: Lymphadenopathy - Respiratory Exam Respiratory Exam: Clear to Ausculation Bilateral, NORMAL BREATHING PATTERN - Cardiovascular Exam Cardiovascular Exam: REGULAR RHYTHM, +S1, +S2. absent: Murmur - GI/Abdominal Exam GI & Abdominal Exam: Soft, Normal Bowel Sounds. absent: Distended, Firm, Guarding, Rigid, Tenderness Additional comments: Incision C/D/I. Stapled. Drain SS. - Exam Exam: NORMAL INSPECTION - Extremities Exam Extremities Exam: Full ROM, Normal Capillary Refill, Normal Inspection. absent : Joint Swelling, Pedal Edema - Back Exam Back Exam: NORMAL INSPECTION - Neurological Exam Neurological Exam: Alert, Awake, CN II-XII Intact, Normal Gait, Oriented x3 - Psychiatric Exam Psychiatric exam: Normal Affect, Normal Mood - Skin Skin Exam: Dry, Intact, Normal Color, Warm Assessment and Plan - Assessment and Plan (Free Text) Assessment: 71M POD #5 s/p incisional hernia repair w/ diarrhea. +Leukocytosis: Improving WBC 18.5 Plan: -F/U CDiff -Empirically treat with PO Flagyl -IVF hydration -Monitor electrolytes -Monitor urine output -Strict Is/Os DW Dr. Agarwal
[2017-08-25] MEDS: Dextrose 5%/0.45% NS 1,000 ML IV SCH ×2 (16:00→21:11)
[2017-08-25 17:42] LABS: URINE BILIRUBIN SMALL (NEGATIVE); URINE BLOOD SMALL (NEGATIVE); URINE GLUCOSE (UA) NEGATIVE (NEGATIVE); URINE KETONE NEGATIVE (NEGATIVE); URINE LEUKOCYTE ESTERASE TRACE Leu/uL (NEGATIVE); URINE PROTEIN 100 mg/dL (<30 mg/dL)
[2017-08-25 17:54] LABS: URINE COLOR YELLOW (YELLOW)
[2017-08-25 17:55] LABS: URINE APPEARANCE SL CLOUDY (CLEAR)
[2017-08-25 18:05] LABS: URINE EPITHELIAL CELLS 0 - 2 /hpf (0-5)
[2017-08-25 18:06] LABS: URINE BACTERIA OCC (NEG)
[2017-08-25] MEDS: Cholestyramine 4 gm/Pkt UD PO SCH (18:41)
--- NOTE | 2017-08-26 04:28 | HP ---
CHIEF COMPLAINT: Diarrhea, weakness and palpitation. HISTORY OF PRESENT ILLNESS: This is a 71-year-old man known to my practice for many years with a history of atrial fibrillation, coronary artery disease status post bypass graft, mild pulmonary hypertension, low ejection fraction and hypertension, who was recently hospitalized for hernia repair. Surgery was unremarkable. His postoperative course was stable, but he did stay overnight because of the complexity of the surgery itself and was discharged to home. The patient says discharged to home on Sunday, the 08/22/2017. The patient states the following day that he developed abdominal discomfort and diarrhea. The diarrhea became severe through the night prompting him to call his surgeon and comes to the emergency room on Sunday afternoon. He was seen by Dr. Agarwal and the surgical team as well as the ER physician. It was found that his white count was markedly elevated at 20. His sodium, potassium and chloride were low showing a contracture alkalosis. He was clinically dry and urine specific gravity was 1.025, IV fluids were given then and stool send for C. diff and was treated for infectious enteritis, started with empiric treatment for C. diff, on antibiotics and admitted. PAST MEDICAL HISTORY: As mentioned above is significant for hypertension, atrial fibrillation, coronary artery disease, mild pulmonary hypertension. There is low ejection fraction of approximately 28%. PAST SURGICAL HISTORY: Significant for coronary artery bypass graft and emergency surgery earlier this year for spontaneous perforated diverticulum, was complicated by abscess formation. MEDICATIONS: At home include Diovan, Livalo, metoprolol succinate 100 mg daily, Keflex, aspirin and amiodarone 100 mg every other day. ALLERGIES: HE HAS NO KNOWN ALLERGIES TO MEDICATIONS. SOCIAL HISTORY: Does not smoke, although, I believe there was history in the past. REVIEW OF SYSTEMS: Otherwise unremarkable except for the items mentioned above. Negative for chest pain due to exertional dyspnea or other GI symptoms. PHYSICAL EXAMINATION: GENERAL: The patient was seen this Sunday morning in room 371, bed 2. He was sitting out of bed in chair. He is awake, alert and in good spirits. He reports that the diarrhea continued through the night, but at a rate of approximately 20 stools per day. HEENT: Head and neck unremarkable. Conjunctivae pink. Mucous membranes are moist. Neck is supple without masses. Thyroid is not palpable. LUNGS: Clear both right and left; although, there are some faint crackles at right base posteriorly. HEART: Irregular Not tachycardic. ABDOMEN: Soft with bowel sounds present. EXTREMITIES: Shows no edema. IMPRESSION: 1. Persistent diarrhea, post-hernia repair, rule out Clostridium difficile and rule out infectious enteritis. 2. Hypertension. 3. Atrial fibrillation as noted on current EKG. 4. Coronary artery disease. PLAN: Continue antibiotics including oral metronidazole in view of the right basilar rales on slow his IV, check morning labs and urinalysis for specific gravity. We will add cholestyramine powder as an antidiarrheal and to observe the C. diff toxin if C. diff is in fact present. We will follow closely and see in the morning. Yonatan Rehman MD MTDD
[2017-08-26] MEDS: Dextrose 5%/0.45% NS 1,000 ML IV SCH (04:51)
--- NOTE | 2017-08-26 05:33 | CARD ---
APPROVED REPORT EXAM: Two-dimensional and M-mode echocardiogram with Doppler and color Doppler. INDICATION 2D DIMENSIONS IVSd1.2 (0.7-1.1cm)LVDd4.8 (3.9-5.9cm) PWd1.4 (0.7-1.1cm)LVDs3.6 (2.5-4.0cm) FS (%) 25.1 %LVEF (%)49.4 (>50%) M-Mode DIMENSIONS Left Atrium (MM)5.60 (2.5-4.0cm)Aortic Root3.30 (2.2-3.7cm) Aortic Cusp Exc.1.80 (1.5-2.0cm) Aortic Valve AoV Peak Gdpvzcru640.0cm/Cari Peak GR.10mmHgAI P 1/2 [id number] Mitral Valve MV E Fxpyduxu767.0cm/s TDI Lateral E' Peak V11.30cm/sMedial E' Peak V7.21cm/sE/Lateral E'11.7 E/Medial E'18.3 Tricuspid Valve TR Peak [id number]/sRAP [id number] Peak Gr.32mmHg [id number] LEFT VENTRICLE The left ventricle is normal size. There is mild concentric left ventricular hypertrophy. The systolic function is mildly impaired. RIGHT VENTRICLE The right ventricle is normal size. The right ventricular systolic function is normal. ATRIA The left atrium size is normal. The right atrium size is normal. The interatrial septum is intact with no evidence for an atrial septal defect. AORTIC VALVE The aortic valve is mildly sclerotic. There is mild aortic regurgitation. There is no aortic valvular stenosis. MITRAL VALVE Mitral annular calcification is mild. Mitral regurgitation is mild to moderate. TRICUSPID VALVE The tricuspid valve is normal in structure. There is mild to moderate tricuspid regurgitation. PULMONIC VALVE There is trace pulmonic valvular regurgitation. GREAT VESSELS The aortic root is normal in size. The IVC is normal in size and collapses >50% with inspiration. PERICARDIAL EFFUSION There is no pleural effusion. There is no pericardial effusion. <Conclusion> Normal chamber size. Mild concentric LVH. Mild LV systolic dysfunction. Mild to moderate MR and TR. Mild AI.
[2017-08-26 06:15] VITALS: O2SAT 96
[2017-08-26] MEDS: Cholestyramine 4 gm/Pkt UD PO SCH ×2 (06:21→17:18)
--- NOTE | 2017-08-26 06:54 | PN ---
DATE: 08/26/2017 SUBJECTIVE: The patient is seen sitting in bed on telemetry. He feels much better. He is anxious to go home. He remains in atrial fibrillation. Lovenox have been ordered yesterday; however, he refuses evening dose. He is very concerned about potential risk of bleeding with anticoagulant therapy. CURRENT MEDICATIONS: Include amiodarone 200 mg b.i.d., Diovan 320 mg daily, Flagyl, Lovenox, which he has refused; Questran, Toprol-XL 100 mg daily, and tramadol. OBJECTIVE: GENERAL: He is a middle-aged man, who is comfortable at the present time. VITAL SIGNS: Blood pressure is 130/76 with pulse of 76 in atrial fibrillation, respirations are 14. He is afebrile. NECK: No JVD. CHEST: Clear to auscultation and percussion. HEART: Rhythm is irregular regular with a systolic murmur at the left sternal border. ABDOMEN: Soft. Bowel sounds are present. A surgical drain is in place. EXTREMITIES: No edema. DIAGNOSTIC DATA: His echocardiogram revealed normal chamber size with mild concentric LVH, mild LV systolic dysfunction as well as [id number] mitral and tricuspid regurgitation. Morning blood work is pending. IMPRESSION: 1. Persistent atrial fibrillation, he remains reluctant to take anticoagulant therapy because of excessive bleeding in the past and concerns that he would have had a catastrophic event if he had been on anticoagulation when he developed his ruptured diverticulum last year. 2. Coronary artery disease, status post remote bypass surgery, clinically stable. 3. Recent incisional hernia repair. RECOMMENDATIONS: As he appears to have a persistent atrial fibrillation going back as far as December of last year when he was admitted for his colostomy reversal, I would advise rate control therapy at this time. His amiodarone does not appear to be effective in controlling his rhythm. I would not make aggressive measures to convert to sinus rhythm given his refusal to take anticoagulation at this time. The risk of thromboembolic events, most especially of cerebrovascular axes were discussed again with him. He remains reluctant to take any oral anticoagulants at this time. We will continue to discuss this further with him as an outpatient. In the interim, I would discontinue his amiodarone as this is not affective. Beta-patti therapy can continue. We will follow along as needed. Davion Gallo MD Psychiatric # [id number]
[2017-08-26] MEDS: Metoprolol Succinate 100 mg XL Tab PO SCH (08:17)
--- NOTE | 2017-08-26 08:42 | CP.PCM.PN ---
Subjective - Date & Time of Evaluation Date of Evaluation: 08/26/17 Time of Evaluation: 08:38 - Subjective Subjective: Surgery Progress note. Dr. Agarwal Pt seen and examined at bedside. No acute events overnight. Reports liquid stool yesterday, 20+ episodes from 3PM until 1AM last night. States that his diarrhea has improved since. Requesting to go home today. Denies any other complaints. Objective - Vital Signs/Intake and Output Vital Signs (last 24 hours): Temp Pulse Resp BP Pulse Ox 98 F 66 20 131/77 96 08/26/17 06:00 08/26/17 06:00 08/26/17 06:00 08/26/17 08:17 08/26/17 06:00 Intake and Output: 08/26/17 08/26/17 06:59 18:59 Intake Total 120 Output Total 60 Balance 60 - Medications Medications: Current Medications Acetaminophen (Tylenol 325mg Tab) 650 mg PO Q4H PRN PRN Reason: Pain, moderate (4-7) Benzocaine/Menthol (Cepacol Sore Throat) 1 mulu MT Q2H PRN PRN Reason: Sore Throat Last Admin: 08/25/17 12:39 Dose: 1 mulu Cholestyramine Resin (Questran) 4 gm PO 0700,1800 [facility] Last Admin: 08/26/17 06:21 Dose: 4 gm Enoxaparin Sodium (Lovenox) 80 mg SC Q12H [facility] PRN Reason: Protocol Last Admin: 08/25/17 21:30 Dose: Not Given Dextrose/Sodium Chloride (Dextrose 5%/0.45% Ns 1000 Ml) 1,000 mls @ 125 mls/hr IV .Q8H [facility] Last Admin: 08/26/17 04:51 Dose: 125 mls/hr Metoprolol Succinate (Toprol Xl) 100 mg PO BRK [facility] Last Admin: 08/26/17 08:17 Dose: 100 mg Metronidazole (Flagyl) 500 mg PO TID [facility] PRN Reason: Protocol Last Admin: 08/25/17 17:24 Dose: 500 mg Ondansetron HCl (Zofran Inj) 4 mg IVP Q6H PRN PRN Reason: Nausea/Vomiting Last Admin: 08/24/17 19:09 Dose: 4 mg Tramadol HCl (Ultram) 50 mg PO Q6H PRN PRN Reason: Pain, moderate (4-7) Valsartan (Diovan) 320 mg PO DAILY [facility] - Labs Labs: 08/25/17 06:30 08/25/17 06:36 PT 13.0 SECONDS (9.4-12.5) H 08/24/17 11:47 INR 1.18 (0.93-1.08) H 08/24/17 11:47 APTT 27.4 Seconds (25.1-36.5) 08/24/17 11:47 - Constitutional Appears: Well, No Acute Distress - Head Exam Head Exam: ATRAUMATIC, NORMAL INSPECTION, NORMOCEPHALIC - Eye Exam Eye Exam: EOMI - ENT Exam ENT Exam: Mucous Membranes Moist - Respiratory Exam Respiratory Exam: Clear to Ausculation Bilateral. absent: Decreased Breath Sounds, Rhonchi, Wheezes - Cardiovascular Exam Cardiovascular Exam: RRR, +S1, +S2. absent: JVD - GI/Abdominal Exam GI & Abdominal Exam: Soft. absent: Guarding, Rigid, Tenderness Additional comments: Low anterior midline inscision intact with leatha, skin edges well approximated. Abd soft, non distended, non tender. - Extremities Exam Extremities Exam: Normal Inspection. absent: Calf Tenderness - Back Exam Back Exam: NORMAL INSPECTION - Neurological Exam Neurological Exam: Alert, Awake, Oriented x3 - Skin Skin Exam: Dry, Intact, Normal Color, Warm Assessment and Plan - Assessment and Plan (Free Text) Assessment: 71yo M s/p incisional hernia repair. POD#6. Now with diarrhea: CDiff Antigen positive, Toxin negative - Repeat Stool CDiff - Continue Flagyl PO - Continue IVF to ensure adequate hydration - ADAT - Monitor and replete electrolytes - Strict I&Os Further recs as per Dr. Any Lee PGY1 surgery pager: [phone]
[2017-08-26] MEDS: Enoxaparin 80 mg Syringe SC SCH (09:50)
[2017-08-26 10:33] LABS: BASO # 0.05 K/mm3 (0.0-2.0); BASO % 0.4 % (0.0-3.0); EOS # 0.6 (0.0-0.7); EOS % 4.6 % (1.5-5.0); GRAN # 8.44 (1.4-6.5); GRAN % 65.4 % (50.0-68.0); HEMATOCRIT 32.5 % (42.0-52.0); LYMPH # 1.4 (1.2-3.4); LYMPH % 11.1 % (22.0-35.0); MEAN CELL VOLUME 96.4 fl (80.0-105.0); MEAN CORPUSCULAR HEMOGLOBIN 32.6 pg (25.0-35.0); MEAN CORPUSCULAR HGB CONC 33.8 g/dl (31.0-37.0); MEAN PLATELET VOLUME 9.6 fl (7.0-11.0); MONO # 2.4 (0.1-0.6); MONO % 18.5 % (1.0-6.0); RED CELL DISTRIBUTION WIDTH 12.7 % (11.5-14.5); WHITE BLOOD COUNT 12.9 10^3/ul (4.5-11.0)
[2017-08-26 12:19] LABS: ALB/GLOB RATIO 1.1 (1.1-1.8); ALKALINE PHOSPHATASE 70 U/L (38-126); ALT/SGPT 74 U/L (7-56); AST/SGOT 33 U/L (17-59); BILIRUBIN,TOTAL 0.6 mg/dL (0.2-1.3); BLOOD UREA NITROGEN 10 mg/dL (7-21); CALCIUM 8.5 mg/dL (8.4-10.5); CARBON DIOXIDE 23 mmol/L (21-33); CHLORIDE 101 mmol/L (98-107); GFR AFRICAN-AMERICAN > 60; GLUCOSE,RANDOM 113 mg/dL (70-110); SODIUM 133 mmol/L (132-148); TOTAL PROTEIN 6.3 g/dL (5.8-8.3)
[2017-08-26 12:43] LABS: POTASSIUM 2.8 mmol/L (3.6-5.0)
[2017-08-26] MEDS ORDERED: Potassium Chloride 20 mEq ER Tab PO STA (12:43)
[2017-08-26 13:47] VITALS: BP 145/93; TEMP 98.1
[2017-08-26] MEDS ORDERED: Potassium Chloride 20 mEq ER Tab PO ONE (17:00)
[2017-08-26 18:05] VITALS: PULSE 110
--- NOTE | 2017-08-27 05:52 | DS ---
HISTORY OF PRESENT ILLNESS: This is a 71-year-old man known to the practice for many years with atrial fibrillation, coronary artery disease, status post coronary artery bypass graft, mild pulmonary hypertension, low ejection fraction,and hypertension, who was recently hospitalized for hernia repair. Surgery was unremarkable, course was stable, but he stayed overnight and was discharged on antibiotics on Sunday. On , he developed abdominal discomfort and diarrhea. Diarrhea became severe prompting him to call the surgeon and come to the Emergency Room on Sunday. In the ER, his white count was found to be elevated at 20,000 and his electrolytes were abnormal showing low potassium, sodium, and chloride with contraction alkalosis. He was clinically dry, admitted to the Medical Surgical Floor. Stool was sent for C. diff and empiric treatment for C. diff was started. COURSE OF HOSPITAL STAY: Patient responded nicely to IV fluids. The following day, he was much improved. C. diff test studies were suggestive of C. diff, so cholestyramine was added that evening. The following morning (today) at 4 a.m., the diarrhea stopped. The patient is feeling markedly improved. His diet had been advanced by surgical team. 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 I told him we will await for his labs to return and do what we can. Later in the afternoon, his labs came back; his white count continued to hold to 12, but his potassium was markedly low at 2.8. IV potassium as well as oral potassium supplements were given and he was discharged to home. He was instructed to come to the office tomorrow, Sunday, for a blood test to follow up on his potassium. Prescriptions were sent for cholestyramine powder as well as metronidazole and potassium supplementation. We will follow up in the office in less than one week after blood test being drawn tomorrow. Yonatan Rehman MD
== END 2017-08-26 18:24 | disposition home or self-care (01) | DRG 372 ==
LOC: ED 10:37 → ERH 12:57 → 3RSO 15:18
PROVIDERS: ADMIT Internal Medicine; ATTEND Internal Medicine
DX: A04.72 Enterocolitis due to Clostridium difficile, not specified as recurrent (principal); I48.1 Persistent atrial fibrillation; E86.0 Dehydration; E87.3 Alkalosis; I48.0 Paroxysmal atrial fibrillation; I25.10 Atherosclerotic heart disease of native coronary artery without angina pectoris; I10 Essential (primary) hypertension; F51.02 Adjustment insomnia; I27.20 Pulmonary hypertension, unspecified; Z95.1 Presence of aortocoronary bypass graft; Z79.82 Long term (current) use of aspirin; Z87.891 Personal history of nicotine dependence